=== PATIENT | male | born 1990 | race Caucasian/White ===

== ENCOUNTER 2016-12-05 21:34 | Emergency (ER) | payer SELFPAY ==
[~2016-12-05] VITALS: Ht 170.2 cm; Wt 63.5 kg
[~2016-12-05 21:34] MED LIST: ACHD5005 PO; ADV1DS; AGM875T PO; ALBU17AE3; ALBU8.5H2 IH; ALBUTERAL NEB; ALBUTEROL; AMOX-358 PO; AMOX500C2 PO; BENADRYL; CEFD300C3 PO; CEPH500C PO; CLIN-80 PO; CPR500T PO; CYCL10TA9 PO; FLT05NA16; FLUT1DIS26; FLUT1DIS28 IH; HYDR-3714 PO; HYDR-3720 PO; HYDR-3812 PO; HYDR-3816 PO; HYDR-707 PO; HYDR-757 PO; HYDR1CAP2 PO; IBUP-30 PO; IBUP800T26 PO; IPRA3AMP IH; IPRA3AMP11 INH; METH4TAB PO; MNTL10T; MPR22T TP; NAPR-243 PO; NAPR250T PO; NAPR500T PO; ONDAN4ODT PO; ORPH100T PO; OXYC-12 PO; PENI250T2 PO; PENI500T PO; PHEN200T27 PO; PRD20T PO; TRAM50TA2 PO; TRM50T PO
[2016-12-06 00:36] VITALS: BP 0/0
--- NOTE | 2016-12-06 00:39 | ED Head Injury ---
General Chief Complaint: Head/Cervical Problems Stated Complaint: HEAD INJ Nursing Triage Note: Pt reports tripping on stairs and hitting head on stair railing. No LOC. Pt also c/o dizziness and "seeing stars". History of Present Illness Time seen by provider: 23:50 Initial Comments Patient reports stepping on his son's hot will car while going down the stairs, he lost his balance fell and hit his right parietal region on the railing warmth. He denies loss of consciousness at the time of the injury. His was present at home. Occurred: this evening Location: parietal (right) Method of Injury: fell Loss of Consciousness: no loss of consciousness Associated Systoms: Denies SymptomsNo Headaches, No Loss of Appetite, No Nausea/Vomiting, No Seizure, No Syncope Allergies and Home Medications Allergies Coded Allergies: tramadol (Unverified Allergy, Unknown, 06/27/14) Uncoded Allergies: NKDA (Allergy, Mild, 02/26/09) Home Medications Albuterol 8.5 Gm Hfa.aer.ad 2 PUFF IH Q4H PRN PRN SHORTNESS OF BREATH (Reported ) 2 PUFFS Albuterol/Ipratropium 3 Ml Nebu #100 3 ML INH QID Prescribed by: LEONARDA GARCIA on 08/05/14 1141 Constitutional: no symptoms reported see HPI Eyes: No Symptoms Reported See HPIDenies Blurred Vision Ears, Nose, Mouth, Throat: no symptoms reported see HPI Respiratory: no symptoms reported see HPI Cardiovascular: no symptoms reported see HPI Gastrointestinal: no symptoms reported see HPI Genitourinary: no symptoms reported see HPI Musculoskeletal: no symptoms reported see HPI Skin: no symptoms reported see HPI Psychiatric/Neurological: No Symptoms Reported See HPI Endocrine: No Symptoms Reported See HPI Hematologic/Lymphatic: No Symptoms Reported See HPI All Other Systems Reviewed Negative Unless Noted: Yes Past Nijjkar-Hpdnom-Huhwgm Hx Patient Social History Alcohol Use: Denies Use Recreational Drug Use: No Smoking Status: Current Someday Smoker Type Used: Cigarettes Former Smoker/When Quit: Aug 05, 2014 Recent Foreign Travel: No Contact w/Someone Who Travel: No Recent Infectious Disease Expo: No Recent Hopitalizations: No Immunizations Up To Date Tetanus Booster (TDap): Less than 5yrs Seasonal Allergies Seasonal Allergies: Yes (Ragweed and pollen) Surgeries HX Surgeries: Yes (MOUTH--SPACER AND PULLED 2 TEETH, FX SCAPULA) Surgeries: Orthopedic Respiratory Hx Respiratory Disorders: Yes Respiratory Disorders: Asthma Cardiovascular Hx Cardiac Disorders: No Neurological Hx Neurological Disorders: Yes Neurological Disorders: Seizure Disorder Reproductive System Hx Reproductive Disorders: No Sexually Transmitted Disease: No Genitourinary Hx Genitourinary Disorders: Yes (Hx re-occuring kidney stones since 8th grade) Genitourinary Disorders: Kidney Stones Gastrointestinal Hx Gastrointestinal Disorders: Yes Gastrointestinal Disorders: Gastroesophageal Reflux Musculoskeletal Hx Musculoskeletal Disorders: Yes Musculoskeletal Disorders: Chronic Back Pain, Fractures Endocrine Hx Endocrine Disorders: No HEENT HX ENT Disorders: Yes (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) Cancer Hx Cancer: No Psychosocial Hx Psychiatric Problems: No Integumentary HX Skin/Integumentary Disorder: Yes Skin/Integumentary Disorders: Eczema Blood Transfusions Hx Blood Disorders: No Adverse Reaction to a Blood Tr: No Reviewed Nursing Assessment Reviewed/Agree w Nursing PMH: Yes Family Medical History Significant Family History: No Pertinent Family Hx Physical Exam Vital Signs Vital Sign - Last 12Hours 12/05/16 22:51 Temp 98.2 Pulse 87 Resp 18 B/P 141/67 Pulse Ox 98 O2 Delivery Room Air Capillary Refill : Less Than 3 Seconds General Appearance: WD/WN no apparent distress HEENT: PERRL/EOMI normal ENT inspection TMs normal pharynx normal other ( trace swelling right parietal region, no ecchymosis, or laceration) Neck: non-tender full range of motion supple normal inspection Cardiovascular: normal peripheral pulses regular rate, rhythm no murmur Respiratory: chest non-tender lungs clear no accessory muscle use Gastrointestinal: normal bowel sounds non tender soft Back: normal inspection no CVA tenderness no vertebral tenderness Extremities: normal range of motion non-tender normal inspection no pedal edema no calf tenderness normal capillary refill Psychiatric: alert oriented x 3 Crainal Nerves: normal hearing normal speech PERRL Coordination/Gait: normal finger to nose normal gait negative Romberg's sign other (recent and remote memory intact.) Motor/Sensory: no motor deficit no sensory deficit no pronator drift Skin: normal color warm/dry Lymphatic: no adenopathy Veronica Coma Score Best Eye Response: (4) Open Spontaneously Best Verbal Response: (5) Oriented Best Motor Response: (6) Obeys Commands Veronica Total: 15 Progress/Results/Core Measures Results/Orders My Orders Vital Signs/I&O Vital Sign - Last 12Hours 12/05/16 22:51 Temp 98.2 Pulse 87 Resp 18 B/P 141/67 Pulse Ox 98 O2 Delivery Room Air Blood Pressure Mean: 91 Progress Note : Time: 23:50 Progress Note Initial evaluation completed, discussed findings with patient recommended CT head. Patient agreed with this denied any needs at this time. 0035 patient and reports they need to return home, he would like to forego the CT study. Discussed risks versus benefits of the CT. He understands and wants to proceed leaving AMA. Departure Impression Impression: Primary Impression: Concussion without loss of consciousness Qualified Code: S06.0X0A - Concussion without loss of consciousness, initial encounter Disposition: AGAINST MEDICAL ADVICE Condition: Stable Departure-Patient Inst. Decision time for Depature: 00:41 Referrals: NO,LOCAL PHYSICIAN (PCP/Family) Primary Care Physician Patient Instructions: Minor Head Injury (DC) Add. Discharge Instructions: All discharge instructions reviewed with patient and/or family. Voiced understanding. Tylenol 650 mg by mouth every 6 hours as needed for pain or headache. Return to emergency department for change in symptoms, change in neurological status, dizziness, confusion, changes in vision, vomiting or any other concerns. LAURE JEAN-BAPTISTE Dec 06, 2016 00:39
== END 2016-12-06 00:40 | disposition left against medical advice (07) ==
LOC: EDUNIT# 21:34 → ER 21:36
DX: S06.0X0A Concussion without loss of consciousness, initial encounter (principal); F17.210 Nicotine dependence, cigarettes, uncomplicated; W10.9XXA Fall (on) (from) unspecified stairs and steps, initial encounter; Y92.009 Unspecified place in unspecified non-institutional (private) residence as the place of occurrence of the external cause; Y99.8 Other external cause status
CPT/HCPCS: 99282

== ENCOUNTER 2018-07-05 14:57 | Emergency (ER) | payer SELFPAY ==
[~2018-07-05] VITALS: Ht 170.2 cm; Wt 63.5 kg
[~2018-07-05 14:57] MED LIST changes: +HYDR-34 PO; -HYDR-3812 PO; -HYDR-3816 PO; +HYDR-4226 PO; -HYDR-757 PO; +NAPR-1071 PO; -NAPR500T PO
--- OUTSIDE RECORDS SUMMARY | 2018-07-05 15:02 | XMS REPORT ---
Author Author HANG SMITH Organization [facility] Address [address] [place] [address] Care Team Providers Care Retail Sales Professional Name Role Phone HANG SMITH Unavailable PROBLEMS Type Condition ICD9-CM Code UTS87-IT Code Onset Dates Condition Status SNOMED Code Problem GUANAKO (generalized anxiety disorder) F41.1 Active 44781929 Problem Social anxiety disorder F40.10 Active 62786287 Problem Anxiety F41.9 Active 41149385 Problem Moderate episode of recurrent major depressive disorder F33.1 Active 056611552 Problem Other chronic pain G89.29 Active 63246907 ALLERGIES No Information ENCOUNTERS Encounter Location Date Diagnosis [facility] [address] [address] Mar, [facility] [id number] [place] [address] February, [facility] [address] [address] February, GUANAKO (generalized anxiety disorder) F41.1 ; Social anxiety disorder F40.10 and Moderate episode of recurrent major depressive disorder F33.1 [facility] [id number] [place] [address]- [address] Jan, Anxiety F41.9 ; Other chronic pain G89.29 and Pain in right wrist M25.531 [facility] [id number] [place] [address] 04756- 2682 Jan, GUANAKO (generalized anxiety disorder) F41.1 ; Social anxiety disorder F40.10 and Moderate episode of recurrent major depressive disorder F33.1 [facility] [id number] [place] [address] -[address] Dec, Right wrist pain M25.531 and Sprain of right wrist, initial encounter S63.501A [facility] [id number] [place] [address]- 04[address] Aug, Anxiety F41.9 [facility] [id number] [place] [address]- 9029 Jul, Anxiety F41.9 [facility] [id number] [place] [address]- 7[address] February, [facility] [id number] [place] [address]36- 3009 Jun, [facility] [id number] [place] [address] 9[address]04- 1542 May, [facility] [id number] [place] [address] 91829- 1641 May, [facility] [id number] [place] [address] 95888- 9398 May, Panic attack F41.0 ; Social anxiety disorder F40.10 ; Generalized anxiety disorder F41.1 and Mood disorder F39 [facility] [id number] [place] [id number] Sep, Dental caries K02.9 [facility] [id number] [place] [id number] Sep, Encounter for dental examination Z01.20 [facility] [id number] [place] [address]60- 3603 Jan, [facility] [id number] [place] [address] 57665- 0[address] Jan, [facility] [id number] [place] [address] 94546- 9926 Oct, [facility] [id number] [place] [address] 17691- 6333 Oct, [facility] [id number] [place] [address] 68860- 3201 May, [facility] [address] [place] [address] February, [facility] [address] [place] [address] Jul, [facility] [address] [place] [address] Sep, [facility] [id number] [place] [address] 2546 Sep, [facility] [address] [place] [address] Sep, [facility] [address] [place] [address] Sep, [facility] [address], [place] [address] Aug, IMMUNIZATIONS No Known Immunizations SOCIAL HISTORY Never Assessed REASON FOR VISIT Refill request PLAN OF CARE VITAL SIGNS MEDICATIONS Unknown Medications RESULTS No Results PROCEDURES No Known procedures INSTRUCTIONS MEDICATIONS ADMINISTERED No Known Medications MEDICAL (GENERAL) HISTORY Type Description Date Medical History Asthma Medical History multiple concussions Surgical History Right Wrist 2011 Hospitalization History asthma x 3 in childhood
--- OUTSIDE RECORDS SUMMARY | 2018-07-05 15:02 | XMS REPORT ---
Author Author HANG SMITH Organization [facility] Address [address] [place] [address] Care Team Providers Care Regrind Mill Operator Name Role Phone HANG SMITH Unavailable PROBLEMS Type Condition ICD9-CM Code EOH88-NO Code Onset Dates Condition Status SNOMED Code Problem GUANAKO (generalized anxiety disorder) F41.1 Active 27191484 Problem Social anxiety disorder F40.10 Active 17878862 Problem Anxiety F41.9 Active 72796951 Problem Moderate episode of recurrent major depressive disorder F33.1 Active 026889527 Problem Other chronic pain G89.29 Active 01749320 ALLERGIES No Information ENCOUNTERS Encounter Location Date Diagnosis [facility] [address] [address] Mar, [facility] [id number] [place] [address] February, [facility] [address] [address] February, GUANAKO (generalized anxiety disorder) F41.1 ; Social anxiety disorder F40.10 and Moderate episode of recurrent major depressive disorder F33.1 [facility] [id number] [place] [address]- [address] Jan, Anxiety F41.9 ; Other chronic pain G89.29 and Pain in right wrist M25.531 [facility] [id number] [place] [address]55- 9[address] Jan, GUANAKO (generalized anxiety disorder) F41.1 ; Social anxiety disorder F40.10 and Moderate episode of recurrent major depressive disorder F33.1 [facility] [id number] [place] [address] Dec, Right wrist pain M25.531 and Sprain of right wrist, initial encounter S63.501A [facility] [id number] [place] [address] 8[address]85- 7[address] Aug, Anxiety F41.9 [facility] [id number] [place] [address] 09568- 7930 Jul, Anxiety F41.9 [facility] [id number] [place] [address] 36[address]- [address] February, [facility] [id number] [place] [address] 23855- 2090 Jun, [facility] [id number] [place] [address] 76207- 1203 May, [facility] [id number] [place] [address] 43037- 1289 May, [facility] [id number] [place] [address] 78177- 6629 May, Panic attack F41.0 ; Social anxiety disorder F40.10 ; Generalized anxiety disorder F41.1 and Mood disorder F39 [facility] [id number] [place] [id number] Sep, Dental caries K02.9 [facility] [id number] [place] [id number] Sep, Encounter for dental examination Z01.20 [facility] [id number] [place] [address] 66324- 7157 Jan, [facility] [id number] [place] [address] 71181- 7985 Jan, [facility] [id number] [place] [address] 50123- 1623 Oct, [facility] [id number] [place] [address] 289[address]- 1860 Oct, [facility] [id number] [place] [address] 58932- 9712 May, [facility] [address] [place] [address] February, [facility] [address], [place] [address] Jul, [facility] [address] [place] [address] Sep, [facility] [address], [place] [address] Sep, [facility] [address], [place] [address] Sep, [facility] [address], [place] [address] Sep, [facility] [address], [place] [address] Aug, IMMUNIZATIONS No Known Immunizations SOCIAL HISTORY Never Assessed REASON FOR VISIT Refill request PLAN OF CARE VITAL SIGNS MEDICATIONS Medication Instructions Dosage Frequency Start Date End Date Duration Status Clonazepam 0.5 MG Orally 2 times a day 0.5 tablet 12h Jan, 28 days Active RESULTS No Results PROCEDURES No Known procedures INSTRUCTIONS MEDICATIONS ADMINISTERED No Known Medications MEDICAL (GENERAL) HISTORY Type Description Date Medical History Asthma Medical History multiple concussions Surgical History Right Wrist 2011 Hospitalization History asthma x 3 in childhood
--- OUTSIDE RECORDS SUMMARY | 2018-07-05 15:03 | XMS REPORT ---
Author Author RAMON SY Organization [facility] Address [address] [place] [address] Care Team Providers Care Brim Ironer Hand Name Role Phone MILAGROSSY REYNAGA Unavailable PROBLEMS Type Condition ICD9-CM Code YLS53-FT Code Onset Dates Condition Status SNOMED Code Problem GUANAKO (generalized anxiety disorder) F41.1 Active 02783447 Problem Social anxiety disorder F40.10 Active 29635901 Problem Anxiety F41.9 Active 12576231 Problem Moderate episode of recurrent major depressive disorder F33.1 Active 463703248 Problem Other chronic pain G89.29 Active 82992264 ALLERGIES No Information ENCOUNTERS Encounter Location Date Diagnosis [facility] [address] [address] Mar, [facility] [id number] [place] [address] February, [facility] [address] [address] February, GUANAKO (generalized anxiety disorder) F41.1 ; Social anxiety disorder F40.10 and Moderate episode of recurrent major depressive disorder F33.1 [facility] [id number] [place] [address]- 68[address] Jan, Anxiety F41.9 ; Other chronic pain G89.29 and Pain in right wrist M25.531 [facility] [address] [address] Jan, GUANAKO (generalized anxiety disorder) F41.1 ; Social anxiety disorder F40.10 and Moderate episode of recurrent major depressive disorder F33.1 [facility] [id number] [place] [address] 64967 -[address]58 Dec, Right wrist pain M25.531 and Sprain of right wrist, initial encounter S63.501A [facility] [id number] [place] [address] 69866- 8427 Aug, Anxiety F41.9 [facility] [id number] [place] [address] 82293- 1222 Jul, Anxiety F41.9 [facility] [id number] [place] [address] 97888- 9698 February, [facility] [id number] [place] [address] 07566- 9513 Jun, [facility] [id number] [place] [address] 68685- 7885 May, [facility] [id number] [place] [address] 03652- 8109 May, [facility] [id number] [place] [address] 94455- 8314 May, Panic attack F41.0 ; Social anxiety disorder F40.10 ; Generalized anxiety disorder F41.1 and Mood disorder F39 [facility] [address] [id number] Sep, Dental caries K02.9 [facility] [id number] [place] [address] [id number] Sep, Encounter for dental examination Z01.20 [facility] [id number] [place] [address] 83021- 5615 Jan, [facility] [id number] [place] [address] 32283- 5003 Jan, [facility] [id number] [place] [address] 40380- 8971 Oct, [facility] [id number] [place] [address] 30393- 7243 Oct, [facility] [id number] [place] [address] 93783- 2546 May, [facility] [id number] [address] 2546 February, [facility] [id number] [address] 2546 Jul, [facility] [id number] [address]- [address] Sep, [facility] [id number] [address]- 25[address] Sep, [facility] [id number] [address] 2546 Sep, [facility] [id number] [address] 2546 Sep, [facility] [id number] [address] Aug, IMMUNIZATIONS No Known Immunizations SOCIAL HISTORY Never Assessed REASON FOR VISIT Psychiatric f/u-Tonja WICK PLAN OF CARE Activity Details Follow Up 2 Months Reason: VITAL SIGNS Height 67 in 2018-02-26 Weight 129.9 lbs 2018-02-26 Heart Rate 80 bpm 2018-02-26 Respiratory Rate 18 2018-02-26 BMI 20.34 kg/m2 2018-02-26 Blood pressure systolic 114 mmHg 2018-02-26 Blood pressure diastolic 68 mmHg 2018-02-26 MEDICATIONS Medication Instructions Dosage Frequency Start Date End Date Duration Status Clonazepam 0.5 MG Orally 2 times a day 0.5 tablet 12h Jan, Active Zoloft 50 MG Orally Once a day 1 tablet 24h Jan, 30 days Active Albuterol Sulfate 90 mcg/actuation inhale 1 puff by Inhalation route as needed every 4-6 hours PRN SOB, wheezing Oct, Active RESULTS No Results PROCEDURES No Known procedures INSTRUCTIONS MEDICATIONS ADMINISTERED No Known Medications MEDICAL (GENERAL) HISTORY Type Description Date Medical History Asthma Medical History multiple concussions Surgical History Right Wrist 2011 Hospitalization History asthma x 3 in childhood
--- OUTSIDE RECORDS SUMMARY | 2018-07-05 15:03 | XMS REPORT ---
Author Author BRENDAN BATES Organization [employer] Address Unknown Phone Unavailable Care Team Providers Care Mine Engineering Supervisor Name Role Phone BRENDAN BATES CP Unavailable Allergies, Adverse Reactions, Alerts Substance Reaction Event Type Tramadol HCl Info Not Available Drug Allergy Problems Problem Type Condition Code Onset Dates Condition Status Assessment Encounter for dental examination Z01.20 Active Medications Medication Code System Code Instructions Start Date End Date Status Dosage Albuterol Sulfate [facility] [address]-04 90 mcg/actuation Nov 01, 2014 inhale 1 puff by Inhalation route as needed every 4-6 hours PRN SOB, wheezing [place] [facility] [address]-89 5-325 MG Orally every 6 hrs Oct 03, 2015 Oct 07, 2015 1 tablet as needed Amoxicillin [facility] [address]-87 500 MG Orally Every 6 hours Oct 03, 2015 Oct 10, 2015 1 capsule Procedures Procedure Coding System Code Date INTRAORL-PERIAPICAL 1 FILM 27267 CPT-4 D0220 Oct 03, 2015 INTRAORL-PERIAPICAL EA ADD FILM CPT-4 D0230 Oct 03, 2015 LTD ORAL EVALUATION - PROBLEM FOCUS CPT-4 D0140 Oct 03, 2015 Vital Signs Date/Time: Oct 03, 2015 Blood Pressure Diastolic 69 mmHg Blood Pressure Systolic 114 mmHg Results No Known Results Summary Purpose [employer] Submission
--- OUTSIDE RECORDS SUMMARY | 2018-07-05 15:03 | XMS REPORT ---
Author Author HANG SMITH [facility] Address [address] [place] [address] Care Team Providers Care Dancing Instructor Name Role Phone HANG SMITH Unavailable PROBLEMS Type Condition ICD9-CM Code CUF20-EX Code Onset Dates Condition Status SNOMED Code Problem Anxiety F41.9 Active 88199835 ALLERGIES No Information SOCIAL HISTORY Never Assessed PLAN OF CARE VITAL SIGNS MEDICATIONS Unknown Medications RESULTS No Results PROCEDURES No Known procedures IMMUNIZATIONS No Known Immunizations MEDICAL (GENERAL) HISTORY Type Description Date Medical History Asthma Surgical History Right Wrist 2011
--- OUTSIDE RECORDS SUMMARY | 2018-07-05 15:03 | XMS REPORT ---
Author Author BRENDAN BATES Organization [employer] Address Unknown Phone Unavailable Care Team Providers Care Customer Service Correspondence Clerk Name Role Phone BRENDAN BATES CP Unavailable Allergies, Adverse Reactions, Alerts Substance Reaction Event Type Tramadol HCl Info Not Available Drug Allergy Problems Problem Type Condition Code Onset Dates Condition Status Assessment Dental caries K02.9 Active Medications Medication Code System Code Instructions Start Date End Date Status Dosage Albuterol Sulfate [facility] [address]-03 90 mcg/actuation Nov 01, 2014 inhale 1 puff by Inhalation route as needed every 4-6 hours PRN SOB, wheezing [place] [facility] [address]-24 5-325 MG Orally every 6 hrs 1 tablet as needed Procedures Procedure Coding System Code Date EXTRAC ERUPTED TOOTH/EXPOSED ROOT CPT-4 D7140 Oct 03, 2015 EXTRAC ERUPTED TOOTH/EXPOSED ROOT CPT-4 D7140 Oct 03, 2015 Vital Signs Date/Time: Oct 16, 2015 Blood Pressure Diastolic 83 mmHg Blood Pressure Systolic 139 mmHg Results No Known Results Summary Purpose [employer] Submission
--- OUTSIDE RECORDS SUMMARY | 2018-07-05 15:03 | XMS REPORT ---
Author Author HANG SMITH Organization [facility] Address [address] [place] [address] Care Team Providers Care Fabric Normalizer Name Role Phone HANG SMITH Unavailable PROBLEMS Type Condition ICD9-CM Code [id number] Code Onset Dates Condition Status SNOMED Code Problem GUANAKO (generalized anxiety disorder) F41.1 Active 12300347 Problem Social anxiety disorder F40.10 Active 30987995 Problem Anxiety F41.9 Active 89805651 Problem Moderate episode of recurrent major depressive disorder F33.1 Active 178361229 Problem Other chronic pain G89.29 Active 95581128 ALLERGIES Substance Reaction Event Type Date Status Tramadol HCl Unknown Drug Allergy Jul, Active ENCOUNTERS Encounter Location Date Diagnosis [facility] [id number] [place] [address] 53822- 1628 February, [facility] [id number] [place] [address] 27984- 7522 February, [facility] [id number] [place] [address] 09300- 3181 February, GUANAKO (generalized anxiety disorder) F41.1 ; Social anxiety disorder F40.10 and Moderate episode of recurrent major depressive disorder F33.1 [facility] [id number] [place] [address] 40519- 4029 Jan, Anxiety F41.9 ; Other chronic pain G89.29 and Pain in right wrist M25.531 [facility] [id number] [place] [address] 88650- 1591 Jan, GUANAKO (generalized anxiety disorder) F41.1 ; Social anxiety disorder F40.10 and Moderate episode of recurrent major depressive disorder F33.1 [facility] [id number] [place] [address] 47729 -5153 Dec, Right wrist pain M25.531 and Sprain of right wrist, initial encounter S63.501A [facility] [id number] [place] [address] 79248- 6639 Aug, Anxiety F41.9 [facility] [id number] [place] [address] 71662- 0846 Jul, Anxiety F41.9 [facility] [id number] [place] [address] 61515- 5472 February, [facility] [id number] [place] [address] 21826- 8088 Jun, [facility] [id number] [place] [address] 42981- 1127 May, [facility] [id number] [place] [address] 60900- 7723 May, [facility] [id number] [place] [address] 89174- 4914 May, Panic attack F41.0 ; Social anxiety disorder F40.10 ; Generalized anxiety disorder F41.1 and Mood disorder F39 [facility] [id number] [place] [address] [id number] Sep, Dental caries K02.9 [facility] [id number] [place] [address] [id number] Sep, Encounter for dental examination Z01.20 [facility] [id number] [place] [address] 95831- 6731 Jan, [facility] [id number] [place] [address] 19646- 6941 Jan, [facility] [id number] [place] [address] 63394- 7543 Oct, [facility] [id number] [place] [address] 84986- 7376 Oct, [facility] [address] [place] [address] 2546 May, [facility] [address] [address] 0076 February, [facility] [address] [address] 1866 Jul, [facility] [address], [place] [address]- 5624 Sep, [facility] [address], [place] [address]- 5188 Sep, [facility] [address], [place] [address]- 4450 Sep, [facility] [address], [place] [address] 2546 Sep, [facility] [address], [place] [address]- 6869 Aug, IMMUNIZATIONS No Known Immunizations SOCIAL HISTORY Never Assessed REASON FOR VISIT Depression f/u, PT depression seems to be under control but his anger seems to be getting the best of him-Tonja WICK PLAN OF CARE Activity Details Follow Up 4 Weeks Reason:mood disorder VITAL SIGNS Height 67 in 2017-08-21 Weight 134.8 lbs 2017-08-21 Temperature 98.3 degrees Fahrenheit 2017-08-21 Heart Rate 84 bpm 2017-08-21 Respiratory Rate 20 2017-08-21 BMI 21.11 kg/m2 2017-08-21 Blood pressure systolic 102 mmHg 2017-08-21 Blood pressure diastolic 78 mmHg 2017-08-21 MEDICATIONS Medication Instructions Dosage Frequency Start Date End Date Duration Status Albuterol Sulfate 90 mcg/actuation inhale 1 puff by Inhalation route as needed every 4-6 hours PRN SOB, wheezing Oct, Active Duloxetine HCl 60 mg Orally Once a day 1 capsule 24h Jul, 30 day(s) Active Xanax 0.5 MG Orally Three times a day 1 tablet 8h May, Active RESULTS No Results PROCEDURES No Known procedures INSTRUCTIONS MEDICATIONS ADMINISTERED No Known Medications MEDICAL (GENERAL) HISTORY Type Description Date Medical History Asthma Medical History multiple concussions Surgical History Right Wrist 2011 Hospitalization History asthma x 3 in childhood
--- OUTSIDE RECORDS SUMMARY | 2018-07-05 15:03 | XMS REPORT ---
Author Author HANG SMITH Organization [facility] Address [address] [place] [address] Care Team Providers Care Floating Operator Name Role Phone HANG SMITH Unavailable PROBLEMS Type Condition ICD9-CM Code [id number] Code Onset Dates Condition Status SNOMED Code Problem GUANAKO (generalized anxiety disorder) F41.1 Active 89761996 Problem Social anxiety disorder F40.10 Active 06728063 Problem Anxiety F41.9 Active 27628239 Problem Moderate episode of recurrent major depressive disorder F33.1 Active 114043795 Problem Other chronic pain G89.29 Active 64029834 ALLERGIES Substance Reaction Event Type Date Status Tramadol HCl seizure Drug Allergy Jan, Active ENCOUNTERS Encounter Location Date Diagnosis [facility] [id number] [place] [address] 92629- 4861 Mar, [facility] [id number] [place] [address] 27279- 3335 February, [facility] [id number] [place] [address] 52615- 9678 February, GUANAKO (generalized anxiety disorder) F41.1 ; Social anxiety disorder F40.10 and Moderate episode of recurrent major depressive disorder F33.1 [facility] [id number] [place] [address] 93825- 3096 Jan, Anxiety F41.9 ; Other chronic pain G89.29 and Pain in right wrist M25.531 [facility] [address] 16215- 7669 Jan, GUANAKO (generalized anxiety disorder) F41.1 ; Social anxiety disorder F40.10 and Moderate episode of recurrent major depressive disorder F33.1 [facility] [id number] [place] [address] 65866 -0195 Dec, Right wrist pain M25.531 and Sprain of right wrist, initial encounter S63.501A [facility] [id number] [place] [address] 01678- 9195 Aug, Anxiety F41.9 [facility] [id number] [place] [address] 42161- 4524 Jul, Anxiety F41.9 [facility] [id number] [place] [address] 35577- 2345 February, [facility] [id number] [place] [address] 28076- 4865 Jun, [facility] [id number] [place] [address] 25912- 4118 May, [facility] [id number] [place] [address] 86512- 8164 May, [facility] [id number] [place] [address] 44980- 3225 May, Panic attack F41.0 ; Social anxiety disorder F40.10 ; Generalized anxiety disorder F41.1 and Mood disorder F39 [facility] [id number] [place] [address] [phone] Sep, Dental caries K02.9 [facility] [id number] [place] [address] [phone] Sep, Encounter for dental examination Z01.20 [facility] [id number] [place] [address] 06419- 8953 Jan, [facility] [id number] [place] [address] 70526- 0918 Jan, [facility] [id number] [place] [address] 42716- 7148 Oct, [facility] [id number] [place] [address] 72988- 2734 Oct, [facility] [address] [place] [address] 2546 May, [facility] [address] [address] 2546 February, [facility] [address], [place] [address] 2546 Jul, [facility] [address], [place] [address]- 3778 Sep, [facility] [id number] [address]- 2546 Sep, [facility] [address], [place] [address] 2546 Sep, [facility] [address], [place] [address]- 2546 Sep, [facility] [id number] [address] 2546 Aug, IMMUNIZATIONS No Known Immunizations SOCIAL HISTORY Never Assessed REASON FOR VISIT Depression, right wrist surgery f/u, concerns over xanax medication [facility] PLAN OF CARE VITAL SIGNS Height 67 in 2018-02-11 Weight 131 lbs 2018-02-11 Temperature 98.1 degrees Fahrenheit 2018-02-11 Heart Rate 92 bpm 2018-02-11 Respiratory Rate 20 2018-02-11 BMI 20.52 kg/m2 2018-02-11 Blood pressure systolic 120 mmHg 2018-02-11 Blood pressure diastolic 78 mmHg 2018-02-11 MEDICATIONS Medication Instructions Dosage Frequency Start Date End Date Duration Status Zoloft 50 MG Orally Once a day 0.5 tablet every day for one week then take full tablet 24h Jan, 30 day(s) Active Clonazepam 0.5 MG Orally 2 times a day 0.5 tablet 12h Jan, Active Albuterol Sulfate 90 mcg/actuation inhale 1 [...]
--- OUTSIDE RECORDS SUMMARY | 2018-07-05 15:03 | XMS REPORT ---
Author HANG Hood Organization [employer] Address Unknown Phone Unavailable Care Team Providers Care Primer Supervisor Name Role Phone HANG SMITH CP Unavailable Allergies No Known Allergies Problems No Known Problems Medications Medication Code System Code Instructions Start Date End Date Status Dosage Xanax [facility] [address]-76 0.5 MG Orally Three times a day Jun 19, 2016 1 tablet Results No Known Results Summary Purpose [employer]ClinicalWorks Submission
--- OUTSIDE RECORDS SUMMARY | 2018-07-05 15:03 | XMS REPORT ---
Author Author ELEANOR WORRELL [facility] Address [address] [place] [address] Care Team Providers Care Data Acquisition Technician Name Role Phone ELEANOR WORRELL Unavailable PROBLEMS Type Condition ICD9-CM Code [id number] Code Onset Dates Condition Status SNOMED Code Problem GUANAKO (generalized anxiety disorder) F41.1 Active 94610087 Problem Social anxiety disorder F40.10 Active 82353102 Problem Anxiety F41.9 Active 98619504 Problem Moderate episode of recurrent major depressive disorder F33.1 Active 666221043 Problem Other chronic pain G89.29 Active 75141687 ALLERGIES Substance Reaction Event Type Date Status Tramadol HCl Unknown Drug Allergy Dec, Active ENCOUNTERS Encounter Location Date Diagnosis [facility] [id number] [place] [address] 86625- 6380 Mar, [facility] [id number] [place] [address] 46129- 9434 February, [facility] [address] [address]39- 8720 February, GUANAKO (generalized anxiety disorder) F41.1 ; Social anxiety disorder F40.10 and Moderate episode of recurrent major depressive disorder F33.1 [facility] [id number] [place] [address] 24584- 3208 Jan, Anxiety F41.9 ; Other chronic pain G89.29 and Pain in right wrist M25.531 [facility] [address] 74218- 1517 Jan, GUANAKO (generalized anxiety disorder) F41.1 ; Social anxiety disorder F40.10 and Moderate episode of recurrent major depressive disorder F33.1 [facility] [id number] [place] [address] 58889 -1177 Dec, Right wrist pain M25.531 and Sprain of right wrist, initial encounter S63.501A [facility] [id number] [place] [address] 15932- 3070 Aug, Anxiety F41.9 [facility] [id number] [place] [address] 88961- 9273 Jul, Anxiety F41.9 [facility] [id number] [place] [address] 65207- 1920 February, [facility] [id number] [place] [address] 80717- 0177 Jun, [facility] [id number] [place] [address] 65239- 0808 May, [facility] [id number] [place] [address] 19915- 9855 May, [facility] [id number] [place] [address] 36734- 8532 May, Panic attack F41.0 ; Social anxiety disorder F40.10 ; Generalized anxiety disorder F41.1 and Mood disorder F39 [facility] [id number] [place] [address] [phone] Sep, Dental caries K02.9 [facility] [id number] [place] [address] [phone] Sep, Encounter for dental examination Z01.20 [facility] [id number] [place] [address] 44098- 7455 Jan, [facility] [id number] [place] [address] 98458- 7665 Jan, [facility] [id number] [place] [address] 60458- 0103 Oct, [facility] [id number] [place] [address] 00918- 3325 Oct, [facility] [id number], [place] [address] 2546 May, [facility] [address], [place] [address]- 0836 February, [facility] [address], [place] [address]- 2546 Jul, [facility] [address], [place] [address]- 6536 Sep, [facility] [address], [place] [address]- 1886 Sep, [facility] [address], [place] [address]- 7016 Sep, [facility] [address], [place] [address] 2546 Sep, [facility] [address], [place] [address]- 2546 Aug, IMMUNIZATIONS No Known Immunizations SOCIAL HISTORY Never Assessed REASON FOR VISIT wrist pain Pt fell a few days ago on R wrist, now having pain in that wrist, does have a history of surgery on that wrist in 2011 with a screw placed SHAMIKA Mims PLAN OF CARE Activity Details Follow Up prn Reason: VITAL SIGNS Height 67 in 2018-01-08 Weight 135.6 lbs 2018-01-08 Temperature 99.2 degrees Fahrenheit 2018-01-08 Heart Rate 100 bpm 2018-01-08 Respiratory Rate 20 2018-01-08 BMI 21.24 kg/m2 2018-01-08 Blood pressure systolic 162 mmHg 2018-01-08 Blood pressure diastolic 98 mmHg 2018-01-08 MEDICATIONS Medication Instructions Dosage Frequency Start Date End Date Duration Status Naproxen 500 MG Orally every 12 hrs 1 tablet with food or milk as needed 12h 15 Dec, 2017 Dec, 7 days Active Xanax 0.5 MG Orally Three times a day 1 tablet 8h 24 May, 2016 Active Albuterol Sulfate 90 mcg/actuation inhale 1 puff by Inhalation route as needed every 4-6 hours PRN SOB, wheezing Oct, Active Duloxetine HCl 60 mg Orally Once a day 1 capsule 24h 26 Oct, 2017 30 day(s) Active RESULTS Name Result Date Reference Range Xray : Wrist, Right 3 views (IN HOUSE) 2018-01-08 PROCEDURES Procedure Date Ordered Result Body Site X-RAY EXAM OF WRIST January 08, 2018 INSTRUCTIONS MEDICATIONS ADMINISTERED No Known Medications MEDICAL (GENERAL) HISTORY Type Description Date Medical History Asthma Medical History multiple concussions Surgical History Right Wrist 2011 Hospitalization History asthma x 3 in childhood
--- OUTSIDE RECORDS SUMMARY | 2018-07-05 15:03 | XMS REPORT ---
Author HANG Hood Organization [employer] Address Unknown Phone Unavailable Care Team Providers Care Insulator Helper Name Role Phone HANG SMITH CP Unavailable Allergies No Known Allergies Problems No Known Problems Medications Medication Code System Code Instructions Start Date End Date Status Dosage Celexa [facility] [address]-49 20 mg Orally Once a day Jun 19, 2016 1 tablet Results No Known Results Summary Purpose [employer]ClinicalWorks Submission
--- OUTSIDE RECORDS SUMMARY | 2018-07-05 15:03 | XMS REPORT ---
Author Author RAMONSY Organization [facility] Address [address] [place] [address] Care Team Providers Care Cook Pickled Meat Name Role Phone MILAGROSSY REYNAGA Unavailable PROBLEMS Type Condition ICD9-CM Code USJ34-DG Code Onset Dates Condition Status SNOMED Code Problem GUANAKO (generalized anxiety disorder) F41.1 Active 05845939 Problem Social anxiety disorder F40.10 Active 42504098 Problem Anxiety F41.9 Active 27497127 Problem Moderate episode of recurrent major depressive disorder F33.1 Active 028302327 Problem Other chronic pain G89.29 Active 34007616 ALLERGIES Substance Reaction Event Type Date Status Tramadol HCl seizure Drug Allergy Jan, Active ENCOUNTERS Encounter Location Date Diagnosis [facility] [id number] [place] [address] 53642- 1650 Mar, [facility] [id number] [place] [address] 91752- 9344 February, [facility] [address] 16[address]- 6997 February, GUANAKO (generalized anxiety disorder) F41.1 ; Social anxiety disorder F40.10 and Moderate episode of recurrent major depressive disorder F33.1 [facility] [id number] [place] [address] 24869- 8771 Jan, Anxiety F41.9 ; Other chronic pain G89.29 and Pain in right wrist M25.531 [facility] [address] 69955- 6227 Jan, GUANAKO (generalized anxiety disorder) F41.1 ; Social anxiety disorder F40.10 and Moderate episode of recurrent major depressive disorder F33.1 [facility] [id number] [place] [address] 31937 -3356 Dec, Right wrist pain M25.531 and Sprain of right wrist, initial encounter S63.501A [facility] [id number] [place] [address] 73572- 4745 Aug, Anxiety F41.9 [facility] [id number] [place] [address] 43118- 5388 Jul, Anxiety F41.9 [facility] [id number] [place] [address] 68239- 2132 February, [facility] [id number] [place] [address] 00082- 5223 Jun, [facility] [id number] [place] [address] 25828- 6481 May, [facility] [id number] [place] [address] 73757- 0315 May, [facility] [id number] [place] [address] 79293- 2065 May, Panic attack F41.0 ; Social anxiety disorder F40.10 ; Generalized anxiety disorder F41.1 and Mood disorder F39 [facility] [id number] [place] [address] [phone] Sep, Dental caries K02.9 [facility] [id number] [place] [address] [phone] Sep, Encounter for dental examination Z01.20 [facility] [id number] [place] [address] 08173- 1835 Jan, [facility] [id number] [place] [address] 47029- 3824 Jan, [facility] [id number] [place] [address] 58783- 8071 Oct, [facility] [id number] [place] [address] 81375- 1664 Oct, [facility] [id number] [address] 2546 May, [facility] [id number] [address]- 5016 February, [facility] [address], [place] [address] 2546 Jul, [facility] [address], [place] [address]- 6826 Sep, [facility] [address], [place] [address]- 8586 Sep, [facility] [address], [place] [address]- 9306 Sep, [facility] [address], [place] [address] 2546 Sep, [facility] [address], [place] [address] 2546 Aug, IMMUNIZATIONS No Known Immunizations SOCIAL HISTORY Never Assessed REASON FOR VISIT intake PLAN OF CARE Activity Details Follow Up 6 Weeks, prn Reason: VITAL SIGNS Height 67 in 2018-01-29 Weight 130 lbs 2018-01-29 Temperature 98.6 degrees Fahrenheit 2018-01-29 Heart Rate 90 bpm 2018-01-29 Respiratory Rate 20 2018-01-29 BMI 20.36 kg/m2 2018-01-29 Blood pressure systolic 126 mmHg 2018-01-29 Blood pressure diastolic 76 mmHg 2018-01-29 MEDICATIONS Medication Instructions Dosage Frequency Start Date End Date Duration Status Duloxetine HCl 60 mg Orally Once a day 1 capsule 24h Jul, 30 day(s) Not-Taking Zoloft 50 MG Orally Once a day 0.5 tablet every day for one week then take full tablet 24h Jan, 30 day(s) Active Xanax 0.5 MG Orally Three times a day as needed 1 tablet May, 30 days Active Albuterol Sulfate 90 mcg/actuation [...]
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
--- NOTE | 2018-07-05 15:41 | ED Trauma-Multisystem ---
General Chief Complaint: Trauma-Non Activation Stated Complaint: FALL/HEAD LAC Nursing Triage Note: Right head lacerations and abrasions with swelling present. Patient also complains of posterior neck pain and right hand pain. Source of Information: Patient Exam Limitations: No Limitations History of Present Illness Date Seen by Provider: Jul 05, 2018 Time Seen by Provider: 15:36 Initial Comments Patient is a 28-year-old male who presents to the emergency room with complaints of laceration to his posterior scalp, abrasion to his right side of his forehead, head, neck, jaw pain after rolling down an embankment. He reports that he is building a shed and has been leveling off a hill and the portion of the hill gave way and caused him roll down the embankment. He reports he did not fall but the rolling caused him to keep his head several times. He states that he rolled 3-4 times. He is unsure if he lost consciousness was dizzy when he got to his feet. He arrived to the emergency room POV. Location Injury Occurred: [place] Occurred: Just Prior to Arrival Pain/Injury Location: Head, Neck, Other (jaw) Loss of Consciousness: Unsure Associated Symptoms (Fall): Headache, Neck Pain Allergies and Home Medications Allergies Coded Allergies: tramadol (Unverified Allergy, Unknown, 06/27/14) Uncoded Allergies: NKDA (Allergy, Mild, 02/26/09) Home Medications Albuterol 8.5 Gm Hfa.aer.ad, 2 PUFF IH Q4H PRN for SHORTNESS OF BREATH, ( Reported) 2 PUFFS Albuterol/Ipratropium 3 Ml Nebu, 3 ML INH QID Prescribed by: LEONARDA GARICA on 08/05/14 1141 Patient Home Medication List Home Medication List Reviewed: Yes Review of Systems Review of Systems Constitutional: see HPI; No chills, No fever Musculoskeletal: see HPI, neck pain, other (jaw pain ) Skin: see HPI, other (laceration to the occipital area of his head. 1 cm in length. Patient to the right side of his head.) All Other Systems Reviewed Negative Unless Noted: Yes Past Tommpsg-Xvplsd-Qrfnzv Hx Past Med/Social Hx: Reviewed Nursing Past Med/Soc Hx Patient Social History Type Used: Cigarettes Recent Foreign Travel: No Contact w/Someone Who Travel: No Recent Infectious Disease Expo: No Recent Hopitalizations: No Physical Abuse: No Sexual Abuse: No Fear: No Immunizations Up To Date Tetanus Booster (TDap): Less than 5yrs Seasonal Allergies Seasonal Allergies: Yes (Ragweed and pollen) Past Medical History Orthopedic Asthma Seizure Disorder Reproductive Disorders: No Sexually Transmitted Disease: No Kidney Stones Gastroesophageal Reflux Chronic Back Pain, Fractures Eczema Adverse Reaction/Blood Tranf: No Family Medical History Reviewed Nursing Family Hx No Pertinent Family Hx Physical Exam Vital Signs Vital Signs - First Documented 07/05/18 07/05/18 15:10 16:56 Temp 98.6 Pulse 126 Resp 16 B/P (MAP) 132/80 (97) Pulse Ox 99 O2 Delivery Room Air Height, Weight, BMI Height: 5'7.00" Weight: 140lbs. oz. 63.695895hj; 25.74 BMI Method:Stated General Appearance: No Apparent Distress, WD/WN Head: Tenderness (to the right occipital area.) Eyes: Bilateral Eye Normal Inspection, Bilateral Eye PERRL, Bilateral Eye EOMI Ears, Nose, Throat: Hearing Grossly Normal, No Evidence of ENT Injury, No Dental Injury, Other (bilateral jaw pain and tenderness) Neck: Normal Inspection, Non Tender, Other (tenderness of cervical spine. C- collar was placed on arrival to the emergency room.) Cardiovascular: Regular Rate, Rhythm, No Edema, No Gallop, No JVD, No Murmur, Normal Peripheral Pulses Respiratory: Chest Non Tender, Lungs Clear, Normal Breath Sounds, No Accessory Muscle Use, No Respiratory Distress Extremity: Normal Capillary Refill, Normal Inspection, Normal Range of Motion, Non Tender, No Calf Tenderness Neurologic/Psychiatric: Alert, Oriented x3, Normal Mood/Affect Skin: Normal Color, Warm/Dry, Other (once in a laceration to his scalp in the occipital area. Bleeding is controlled. He does have abrasions to the right side of his forehead.) Heidrick Coma Score Best Eye Response (Heidrick): (4) Open Spontaneously Best Verbal Response (Heidrick): (5) Oriented Best Motor Response (Veronica): (6) Obeys Commands Veronica Total: 15 Procedures/Interventions Wound Location: Scalp Other Wound Location Right occipital Wound Length (cm): 1 Wound's Depth, Shape: superficial, linear Wound Explored: clean Irrigated w/ Saline (ccs): 50 Staple Repair: Stapler 35W Number of Sutures: 2 Progress The wound was cleaned and irrigated with normal saline and Betasept. The patient did not want any anesthetic. The laceration was closed with 2 tim. Progress/Results/Core Measures Results/Orders My Orders Orders - ISIS RODRIGUEZ Ct Head/Face/Cervical Wo (07/05/18 15:32) Acetaminophen Tablet (Tylenol Tablet) (07/05/18 17:00) Vital Signs/I&O 07/05/18 07/05/18 15:10 16:56 Temp 98.6 98.6 Pulse 126 126 Resp 16 16 B/P (MAP) 132/80 (97) 132/80 (97) Pulse Ox 99 O2 Delivery Room Air Room Air Blood Pressure Mean: 97 Progress Progress Note : Time: 16:30 Progress Note I have seen and evaluated the patient. C-collar was removed this time. He was informed normal imaging studies. Suture repaired with 2 tim. He did not any anesthetic prior to laceration repair. Tylenol was given for pain. He agrees with plans for discharge, close follow-up with a primary care provider. Return precautions were given. Diagnostic Imaging Diagonstic Imaging: CT Plain Films/CT/US/NM/MRI: facial bones, c-spine, head Comments NAME: BRI JONES [facility] REC#: [id number] PHYSICIAN: ISIS RODRIGUEZ CC: ISIS RODRIGUEZ; IASBEL CASTELLON MD Page 2 of 2 RADIOLOGY REPORT [place] CC: PAULO RODRIGUEZ ERIC D MD Page 1 of 2 RADIOLOGY REPORT NAME: BRI JONES [facility] REC#: [id number] PT STATUS: REG ER : 1990 PHYSICIAN: ISIS RODRIGUEZ ADMIT DATE: 07/05/18/ER Signed Date of Exam: 07/05/18 CT HEAD/FACE/CERVICAL WO PROCEDURE: CT head, face, and cervical spine without contrast. TECHNIQUE: Multiple contiguous axial images were obtained through the head, neck, and facial bones without the use of intravenous contrast. Sagittal and coronal reformations through the cervical spine and facial bones were also performed. INDICATION: Rolled down hill and bumped head. CT head: FINDINGS: Ventricles and cortical gyral pattern are normal. There is no intracranial hemorrhage. No mass effect. No extra-axial fluid collection. Basal cisterns are clear. Mastoid air cells are well aerated and clear. There is a large cyst in right maxillary sinus. No evidence of calvarial fractures. IMPRESSION: No acute intracranial abnormalities. CT facial bones: FINDINGS: No fractures are demonstrated throughout the facial bones. Zygomatic arches are intact. Nasal septum is midline. There is a large cyst in the right maxillary antrum measuring 2.5 cm. There is diffuse dental caries with multiple apical root abscesses noted both in the maxillary and mandibular molars. There are defects in the crown of the teeth as well. IMPRESSION: Severe dental caries both in the mandible and maxilla. No acute abnormalities demonstrated. CT cervical spine: FINDINGS: Sagittal and coronal reformatted images. Good alignment of the vertebral bodies. Body heights well maintained. Disc spaces are well maintained. The atlantoaxial joint is normal. The facets appear normal. There are no fractures. The surrounding soft tissues are normal. IMPRESSION: Normal CT cervical spine. Dictated by: Dictated on workstation # [id number] Dict: 07/05/18 1556 Trans: 07/05/18 1636 Interpreted by: ISABEL CASTELLON MD Electronically signed by: ISABEL CASTELLON MD 07/05/18 1636 Departure Impression Primary Impression: Minor head injury Additional Impression: Laceration Disposition: 01 HOME, SELF-CARE Condition: Departure-Patient Inst. Decision time for Depature: 16:47 Referrals: NO,LOCAL PHYSICIAN (PCP) Primary Care Physician Patient Instructions: Laceration Repair With Tim (DC), Minor Head Injury ( DC) Add. Discharge Instructions: Watch for signs of infection such as increased redness, drainage, swelling, fever. Return back to the emergency room in 7 days to have the tim removed. Tylenol and ibuprofen as directed by the bottle for pain ice to the sore areas a 20 minute intervals. Follow up with her primary care provider within 1 week for recheck. Return back to the emergency room should you develop any neurological complications such as dizziness, nausea, vomiting, loss of consciousness, or any other concerns as needed. All discharge instructions reviewed with patient and/or family. Voiced understanding. ISIS ORDRIGUEZ Jul 05, 2018 15:41
--- NOTE | 2018-07-05 16:07 | Diagnostic Imaging Report ---
PROCEDURE: CT head, face, and cervical spine without contrast. TECHNIQUE: Multiple contiguous axial images were obtained through the head, neck, and facial bones without the use of intravenous contrast. Sagittal and coronal reformations through the cervical spine and facial bones were also performed. INDICATION: Rolled down hill and bumped head. CT head: FINDINGS: Ventricles and cortical gyral pattern are normal. There is no intracranial hemorrhage. No mass effect. No extra-axial fluid collection. Basal cisterns are clear. Mastoid air cells are well aerated and clear. There is a large cyst in right maxillary sinus. No evidence of calvarial fractures. IMPRESSION: No acute intracranial abnormalities. CT facial bones: FINDINGS: No fractures are demonstrated throughout the facial bones. Zygomatic arches are intact. Nasal septum is midline. There is a large cyst in the right maxillary antrum measuring 2.5 cm. There is diffuse dental caries with multiple apical root abscesses noted both in the maxillary and mandibular molars. There are defects in the crown of the teeth as well. IMPRESSION: Severe dental caries both in the mandible and maxilla. No acute abnormalities demonstrated. CT cervical spine: FINDINGS: Sagittal and coronal reformatted images. Good alignment of the vertebral bodies. Body heights well maintained. Disc spaces are well maintained. The atlantoaxial joint is normal. The facets appear normal. There are no fractures. The surrounding soft tissues are normal. IMPRESSION: Normal CT cervical spine. Dictated by: Dictated on workstation # [id number]
[2018-07-05 16:56] VITALS: BP 132/80
[2018-07-05] MEDS ORDERED: ACETAMINOPHEN 500 MG TAB (TYLENOL) PO ONE (17:00)
== END 2018-07-05 16:59 | disposition home or self-care (01) ==
LOC: EDUNIT# 14:57 → ER 14:58
DX: S09.90XA Unspecified injury of head, initial encounter (principal); S01.01XA Laceration without foreign body of scalp, initial encounter; J45.909 Unspecified asthma, uncomplicated; G40.909 Epilepsy, unspecified, not intractable, without status epilepticus; K21.9 Gastro-esophageal reflux disease without esophagitis; R40.2142 Coma scale, eyes open, spontaneous, at arrival to emergency department; R40.2252 Coma scale, best verbal response, oriented, at arrival to emergency department; R40.2362 Coma scale, best motor response, obeys commands, at arrival to emergency department; Z87.442 Personal history of urinary calculi; Z88.6 Allergy status to analgesic agent; Z79.51 Long term (current) use of inhaled steroids; W17.89XA Other fall from one level to another, initial encounter
CPT/HCPCS: 70450; 70486; 72125

== ENCOUNTER 2019-08-16 10:57 | Emergency (ER) | payer OTHER ==
[~2019-08-16] VITALS: Ht 170 cm; Wt 61.3 kg
--- NOTE | 2019-08-16 12:06 | ED Trauma-Multisystem ---
General Chief Complaint: Trauma-Non Activation Stated Complaint: HEAD INJ;R WRIST INJ Nursing Triage Note: PT PRESENTS TO ED WITH COMPLAINTS OF HEAD, R JAW, AND R WRIST PAIN AFTER FALLING DOWN STEPS THIS AM. History of Present Illness Date Seen by Provider: Aug 16, 2019 Time Seen by Provider: 11:50 Initial Comments 29 year old male, feel down 4 stairs. He was going down stairs, was carrying a mop and tripped on the mop, causing him to fall and hit the right side of face, right writs and right ribs. His last Tetanus was in 2016 Location Injury Occurred: HOME RESIDENCE Occurred: Just Prior to Arrival Pain/Injury Location: Chest (right ribs), Face, Upper Extremity (right wrist, previous scaphoid fracture with ORIF) Loss of Consciousness: No Loss of Consciousness Associated Symptoms (Fall): Denies Symptoms Allergies and Home Medications Allergies Coded Allergies: tramadol (Unverified Allergy, Unknown, 06/27/14) Uncoded Allergies: NKDA (Allergy, Mild, 02/26/09) Home Medications Albuterol 8.5 Gm Hfa.aer.ad, 2 PUFF IH Q4H PRN for SHORTNESS OF BREATH, (Reported) 2 PUFFS Albuterol/Ipratropium 3 Ml Nebu, 3 ML INH QID Prescribed by: LEONARDA GARCIA on 08/05/14 1141 Patient Home Medication List Home Medication List Reviewed: Yes Review of Systems Review of Systems Constitutional: no symptoms reported, see HPI Eyes: No Symptoms Reported, See HPI; Denies Blurred Vision, Denies Decreased Acuity, Denies Photophobia, Denies Vision Changes Ears: No Symptoms Reported, See HPI Nose: No Symptoms Reported, See HPI Mouth: See HPI, Pain (right jaw pain, No Pain at TMJ) Throat: No Symptoms to Report, See HPI Respiratory: no symptoms reported, see HPI All Other Systems Reviewed Negative Unless Noted: Yes Past Yxktrnr-Itmbcd-Jotkjn Hx Past Med/Social Hx: Reviewed Nursing Past Med/Soc Hx Patient Social History Alcohol Use: Denies Use Recreational Drug Use: No Drug of Choice: marijuana Smoking Status: Current Everyday Smoker Type Used: Cigarettes Recent Hopitalizations: No Physical Abuse: No Sexual Abuse: No Mistreated: No Fear: No Immunizations Up To Date Tetanus Booster (TDap): Less than 5yrs Seasonal Allergies Seasonal Allergies: Yes (Ragweed and pollen) Past Medical History Surgeries: Yes (MOUTH--SPACER AND PULLED 2 TEETH, FX SCAPULA, r wrist) Orthopedic Respiratory: Yes Asthma Cardiac: No Neurological: Yes Seizure Disorder Reproductive Disorders: No Sexually Transmitted Disease: No Genitourinary: No Kidney Stones Gastrointestinal: No Gastroesophageal Reflux Musculoskeletal: Yes (screw in right wrist) Chronic Back Pain, Fractures Endocrine: No HEENT: No Cancer: No Psychosocial: No Integumentary: Yes Eczema Blood Disorders: No Adverse Reaction/Blood Tranf: No Family Medical History No Pertinent Family Hx Physical Exam Vital Signs Vital Signs - First Documented 08/16/19 11:55 Temp 36.9 Pulse 101 Resp 20 B/P (MAP) 131/93 (106) Pulse Ox 98 Height, Weight, BMI Height: 5'7.00" Weight: 140lbs. oz. 63.389225ts; 25.74 BMI Method:Stated General Appearance: No Apparent Distress, WD/WN Head: No Evidence of Injury, Contusions (right forehead at hair line); No Active Bleeding, No La's Sign Eyes: Bilateral Eye Normal Inspection, Bilateral Eye PERRL, Bilateral Eye EOMI Ears, Nose, Throat: Hearing Grossly Normal, No Evidence of ENT Injury, No Dental Injury; No Hemotympanum, No Midface Instability, No Dental Injury Neck: Full Range of Motion, Normal Inspection, Non Tender, Supple Cardiovascular: Regular Rate, Rhythm, No Edema, No Murmur, Normal Peripheral Pulses Respiratory: Lungs Clear, Normal Breath Sounds, Other (pain in right upper ribs) Gastrointestinal: Normal Bowel Sounds, Non Tender, Soft Extremity: Normal Capillary Refill, Normal Inspection, Normal Range of Motion, Other (pain and limitation of motion right wrist, chronic) Neurologic/Psychiatric: Alert, Oriented x3, No Motor/Sensory Deficits, Normal Mood/Affect Skin: Normal Color, Warm/Dry Progress/Results/Core Measures Results/Orders My Orders Orders - LAURE JEAN-BAPTISTE Wrist, Right, 3 Views Or More (08/16/19 12:00) Ct Head/Maxillofacial Wo (08/16/19 12:03) Ribs, Right 2-3 Views (08/16/19 12:03) Acetaminophen Tablet/Caplet (Tylenol T (08/16/19 12:11) Vital Signs/I&O 08/16/19 08/16/19 08/16/19 11:55 12:04 13:34 Temp 36.9 36.9 36.9 Pulse 101 101 90 Resp 20 20 20 B/P (MAP) 131/93 (106) 131/93 (106) 129/80 (106) Pulse Ox 98 98 98 Blood Pressure Mean: 106 Progress Progress Note : Time: 11:50 Progress Note Patient seen and evaluated, we'll obtain CT of the head and x-rays of the ribs and right wrist. 1240 diagnostic studies negative. Discharge instructions and return precautions reviewed with patient. Diagnostic Imaging Diagonstic Imaging: Xray Comments NAME: BRI JONES Rosemary [facility] REC#: [id number] PT STATUS: REG ER : 1990 PHYSICIAN: LAURE JEAN-BAPTISTE ADMIT DATE: 08/16/19/ER Draft Date of Exam:08/16/19 RIBS, RIGHT 2-3 VIEWS INDICATION: Fall with right-sided rib pain. TIME OF EXAMINATION: 12:12 PM. TECHNIQUE: Three views of the right ribs were obtained. FINDINGS: No displaced rib fracture is detected. No parenchymal contusion, effusion, or pneumothorax is seen. IMPRESSION: No displaced rib fracture is detected. Dictated on workstation # [id number] Dict: 08/16/19 1220 Trans: 08/16/19 1221 [id number] Interpreted by: DION MEEKS MD Electronically signed by: Reviewed: Reviewed by Me Diagonstic Imaging: Xray Plain Films/CT/US/NM/MRI: other (wrist) Comments NAME: BRI JONES Rosemary [facility] REC#: [id number] PT STATUS: REG ER : 1990 PHYSICIAN: LAURE JEAN-BAPTISTE ADMIT DATE: 08/16/19/ER Draft Date of Exam:08/16/19 WRIST, RIGHT, 3 VIEWS OR MORE INDICATION: Fall, pain in the right wrist. TIME OF EXAM: 12:10 p.m. COMPARISON: Correlation is made with prior right wrist radiographs from 08/07/2015. FINDINGS: Postsurgical changes involving the scaphoid are again noted. There continues to be lucency about the scaphoid hardware, similar to prior exam. There is some volume loss in the proximal pole of the navicular, similar to prior study. A component of osteonecrosis cannot be entirely excluded. Scapholunate space is within normal limits. Distal radius and ulna are intact. No acute fractures are seen. Carpus appears to be intact. IMPRESSION: Chronic changes to the scaphoid, as described and similar to prior study from 08/07/2015. No new abnormality is seen. No acute bony abnormality is seen. Dictated on workstation # [id number] Dict: 08/16/19 1218 Trans: 08/16/19 1221 [id number] Interpreted by: DION MEEKS MD Electronically signed by: Reviewed: Reviewed by Me Diagonstic Imaging: CT Plain Films/CT/US/NM/MRI: head Comments NAME: BRI JONES [facility] REC#: [id number] PT STATUS: REG ER : 1990 PHYSICIAN: LAURE JEAN-BAPTISTE ADMIT DATE: 08/16/19/ER Draft Date of Exam:08/16/19 CT HEAD/MAXILLOFACIAL WO PROCEDURE: CT head and maxillofacial without contrast. TECHNIQUE: Multiple contiguous axial images were obtained through the head and facial bones without the use of intravenous contrast. Auto Exposure Controls were utilized during the CT exam to meet ALARA standards for radiation dose reduction. INDICATION: Fall with head and maxillofacial injuries. FINDINGS: CT HEAD: CT images of the head were obtained. FINDINGS: Ventricles and sulci are within normal limits for size. There is no intracranial hemorrhage identified. There is no abnormal mass effect or shift of midline structures. IMPRESSION: Unremarkable CT of the head. Maxillofacial CT: Globes are intact bilaterally without evidence of retrobulbar hematoma. No acute facial fracture is identified. There is mild mural thickening throughout multiple bilateral ethmoid air cells with moderate mural thickening in both maxillary sinuses. There is also moderate mural thickening in the left sphenoid sinus. Temporomandibular joints are unremarkable, bilaterally. There are multiple lucencies adjacent to the roots of teeth bilaterally, likely due to suboptimal dentition and multiple caries with periapical abscesses. IMPRESSION: 1. Pansinusitis with numerous dental caries and probable periapical abscesses. Dental correlation is recommended. 2. There is extensive chronic sinus disease without acute maxillofacial abnormality identified. Dictated on workstation # [id number] Dict: 08/16/19 1304 Trans: 08/16/19 1309 [id number] Interpreted by: HERI RODAS MD Electronically signed by: Reviewed: Reviewed by Me Departure Impression Primary Impression: Status post fall Additional Impression: Minor head injury Qualified Codes: S09.90XA - Unspecified injury of head, initial encounter Disposition: 01 HOME, SELF-CARE Condition: Improved Departure-Patient Inst. Decision time for Depature: 13:25 Referrals: NO,LOCAL PHYSICIAN (PCP/Family) Primary Care Physician Patient Instructions: Preventing Falls, Closed Head Injury (DC) Add. Discharge Instructions: You may take Tylenol 650 mg every 6 hours as needed for pain. Follow-up with Dr. Duffy for your wrist. Brain rest: Limit use of computers, cell phones, videogames. Increase water intake, 16 ounces every 2 hours while awake. Keep your feet on the ground, do not do any work or urine elevated surfaces. Follow-up with your primary care provider if symptoms are not improving or worsen. Return to the emergency department for new, urgent health care needs. All discharge instructions reviewed with patient and/or family. Voiced understanding. LAURE JEAN-BAPTISTE Aug 16, 2019 12:06
[2019-08-16] MEDS ORDERED: ACETAMINOPHEN 325 MG TABLET PO STA (12:11)
--- NOTE | 2019-08-16 12:21 | Diagnostic Imaging Report ---
INDICATION: Fall with right-sided rib pain. TIME OF EXAMINATION: 12:12 PM. TECHNIQUE: Three views of the right ribs were obtained. FINDINGS: No displaced rib fracture is detected. No parenchymal contusion, effusion, or pneumothorax is seen. IMPRESSION: No displaced rib fracture is detected. Dictated by: Dictated on workstation # [id number]
--- NOTE | 2019-08-16 12:22 | Diagnostic Imaging Report ---
INDICATION: Fall, pain in the right wrist. TIME OF EXAM: 12:10 p.m. COMPARISON: Correlation is made with prior right wrist radiographs from 08/07/2015. FINDINGS: Postsurgical changes involving the scaphoid are again noted. There continues to be lucency about the scaphoid hardware, similar to prior exam. There is some volume loss in the proximal pole of the navicular, similar to prior study. A component of osteonecrosis cannot be entirely excluded. Scapholunate space is within normal limits. Distal radius and ulna are intact. No acute fractures are seen. Carpus appears to be intact. IMPRESSION: Chronic changes to the scaphoid, as described and similar to prior study from 08/07/2015. No new abnormality is seen. No acute bony abnormality is seen. Dictated by: Dictated on workstation # [id number]
--- NOTE | 2019-08-16 13:09 | Diagnostic Imaging Report ---
PROCEDURE: CT head and maxillofacial without contrast. TECHNIQUE: Multiple contiguous axial images were obtained through the head and facial bones without the use of intravenous contrast. Auto Exposure Controls were utilized during the CT exam to meet ALARA standards for radiation dose reduction. INDICATION: Fall with head and maxillofacial injuries. FINDINGS: CT HEAD: CT images of the head were obtained. FINDINGS: Ventricles and sulci are within normal limits for size. There is no intracranial hemorrhage identified. There is no abnormal mass effect or shift of midline structures. IMPRESSION: Unremarkable CT of the head. Maxillofacial CT: Globes are intact bilaterally without evidence of retrobulbar hematoma. No acute facial fracture is identified. There is mild mural thickening throughout multiple bilateral ethmoid air cells with moderate mural thickening in both maxillary sinuses. There is also moderate mural thickening in the left sphenoid sinus. Temporomandibular joints are unremarkable, bilaterally. There are multiple lucencies adjacent to the roots of teeth bilaterally, likely due to suboptimal dentition and multiple caries with periapical abscesses. IMPRESSION: 1. Pansinusitis with numerous dental caries and probable periapical abscesses. Dental correlation is recommended. 2. There is extensive chronic sinus disease without acute maxillofacial abnormality identified. Dictated by: Dictated on workstation # [id number]
[2019-08-16 13:34] VITALS: BP 129/80
== END 2019-08-16 13:34 | disposition home or self-care (01) ==
LOC: EDUNIT# 10:57 → ER 10:58
DX: S09.90XA Unspecified injury of head, initial encounter (principal); J45.909 Unspecified asthma, uncomplicated; G40.909 Epilepsy, unspecified, not intractable, without status epilepticus; K21.9 Gastro-esophageal reflux disease without esophagitis; F17.210 Nicotine dependence, cigarettes, uncomplicated; Z87.442 Personal history of urinary calculi; Z88.5 Allergy status to narcotic agent; W10.9XXA Fall (on) (from) unspecified stairs and steps, initial encounter
CPT/HCPCS: 70450; 70486; 71100; 73110

== ENCOUNTER 2019-10-31 08:37 | Emergency (ER) | payer OTHER ==
[~2019-10-31] VITALS: Ht 170.2 cm; Wt 63.5 kg
[2019-10-31] MEDS ORDERED: RT-ALBUTEROL SULF 2.5 MG/3 ML PRE-MIX VIAL ONE (08:38)
[2019-10-31] MEDS ORDERED: RT-ALBUTEROL SULF 2.5 MG/3 ML PRE-MIX VIAL INH STA ×2 (08:44→08:49)
[2019-10-31] MEDS ORDERED: predniSONE 20 MG TAB PO ONE (08:45)
--- NOTE | 2019-10-31 08:49 | ED Respiratory ---
General Chief Complaint: Respiratory Problems Stated Complaint: ASTHMA ATTACK Nursing Triage Note: PT AMB TO [facility] 5 WITH COMPLAINT OF ASTHMA ATTACK. STATES STARTED AT 0500. STATES TRIED DRINKING CAFFEINE AND OTHER HOME REMEDIES, BUT DID NOT WORK. STATES DOES NOT HAVE AN ALBUTEROL INHALER, UNABLE TO AFFORD. Source: patient Exam Limitations: no limitations History of Present Illness Date Seen by Provider: Oct 31, 2019 Time Seen by Provider: 08:37 Initial Comments Here with report of acute onset of asthma started at 5 AM. Notes that he is out of his albuterol inhaler due to prescription ran out and he states he actually can't afford to buy 1. He tried other methods to help read uses asthma but that did not work and ultimately presented here for evaluation and care. Denies fevers, vomiting or diarrhea. He does not smoke but does vape occasionally. Timing/Duration: yesterday, getting worse Severity: moderate Prior Episodes/Possible Cause: occasional episodes Modifying Factors: Worse With Activity Associated Symptoms: cough; No fever/chills, No nasal congestion; shortness of breath; No sore throat; wheezing Allergies and Home Medications Allergies Coded Allergies: tramadol (Unverified Allergy, Unknown, 06/27/14) Uncoded Allergies: NKDA (Allergy, Mild, 02/26/09) Home Medications Albuterol 8.5 Gm Hfa.aer.ad, 2 PUFF IH Q4H PRN for SHORTNESS OF BREATH, (Reported) 2 PUFFS Albuterol Sulfate 1 Puff Puff, 2 PUFF INH Q4H PRN for WHEEZING 1 PUFF = 90 MCG Prescribed by: MAGALY HURTADO on 10/31/19 0856 Albuterol/Ipratropium 3 Ml Nebu, 3 ML INH QID Prescribed by: LEONARDA GARCIA on 08/05/14 1141 Prednisone 20 Mg Tab, 40 MG PO DAILY Prescribed by: MAGALY HURTADO on 10/31/19 0856 Patient Home Medication List Home Medication List Reviewed: Yes Review of Systems Review of Systems Constitutional: No chills, No fever EENTM: see HPI Respiratory: cough, wheezing Cardiovascular: no symptoms reported Gastrointestinal: no symptoms reported Skin: no symptoms reported Past Iltambd-Mxsfhw-Uzmwxh Hx Past Med/Social Hx: Reviewed Nursing Past Med/Soc Hx Patient Social History Alcohol Use: Denies Use Recreational Drug Use: Yes Drug of Choice: marijuana Smoking Status: Current Everyday Smoker Type Used: Cigarettes, Electronic/Vapor Recent Foreign Travel: No Contact w/Someone Who Travel: No Recent Infectious Disease Expo: No Recent Hopitalizations: No Immunizations Up To Date Tetanus Booster (TDap): Less than 5yrs Seasonal Allergies Seasonal Allergies: Yes (Ragweed and pollen) Past Medical History Surgeries: Yes (MOUTH--SPACER AND PULLED 2 TEETH, FX SCAPULA, r wrist) Orthopedic Respiratory: Yes Asthma Cardiac: No Neurological: Yes Seizure Disorder Reproductive Disorders: No Sexually Transmitted Disease: No Genitourinary: No Kidney Stones Gastrointestinal: No Gastroesophageal Reflux Musculoskeletal: Yes (screw in right wrist) Chronic Back Pain, Fractures Endocrine: No HEENT: No Cancer: No Psychosocial: No Integumentary: Yes Eczema Blood Disorders: No Adverse Reaction/Blood Tranf: No Family Medical History Reviewed Nursing Family Hx No Pertinent Family Hx Physical Exam Vital Signs - First Documented 10/31/19 08:38 Pulse 112 Resp 20 B/P (MAP) 163/94 (117) Pulse Ox 96 O2 Delivery Room Air Capillary Refill : Less Than 3 Seconds Height: 5'7.00" Weight: 140lbs. oz. 63.499947ua; 21.00 BMI Method:Stated General Appearance: no apparent distress HEENT: PERRL/EOMI, TMs normal, pharynx normal Neck: full range of motion, supple Respiratory: accessory muscle use, wheezing, expiration, inspiration Cardiovascular: no murmur, tachycardia Gastrointestinal: non tender, soft Extremities: non-tender, normal inspection Neurologic/Psychiatric: alert, oriented x 3 Skin: normal color, warm/dry Progress/Results/Core Measures Suspected Sepsis Recent Fever Within 48 Hours: No Infection Criteria Present: None New/Unexplained Altered Menta: No Sepsis Screen: No Definite Risk SIRS Temperature: Pulse: 112 Respiratory Rate: 20 Blood Pressure 163 /94 Mean: 117 Results/Orders My Orders Orders - MAGALY HURTADO MD Albuterol Pre-Mix Nebs (Rt) (Proventil (10/31/19 08:38) Albuterol Pre-Mix Nebs (Rt) (Proventil (10/31/19 08:44) Svn Small Volume Nebulizer (10/31/19 08:44) Prednisone Tablet (Deltasone Tablet) (10/31/19 08:45) Albuterol Pre-Mix Nebs (Rt) (Proventil (10/31/19 08:49) Svn Small Volume Nebulizer (10/31/19 08:49) Albuterol/Ipra Inhalation Soln (Duoneb I (10/31/19 09:15) Svn Small Volume Nebulizer (10/31/19 09:13) Albuterol/Ipra Inhalation Soln (Duoneb I (10/31/19 09:09) Medications Given in ED Current Medications Medications Dose Ordered Sig/Addy Route Start Time Stop Time Status Last Admin Dose Admin Albuterol Sulfate 2.5 mg STK-MED ONCE .ROUTE 10/31/19 08:38 10/31/19 08:43 DC 10/31/19 08:43 2.5 MG Albuterol/ Ipratropium 3 ml ONCE ONCE INH 10/31/19 09:15 10/31/19 09:16 DC 10/31/19 09:14 3 ML Vital Signs/I&O 10/31/19 10/31/19 10/31/19 10/31/19 08:38 08:44 08:51 09:14 Pulse 112 Resp 20 B/P (MAP) 163/94 (117) Pulse Ox 96 94 94 95 O2 Delivery Room Air Room Air Room Air Room Air Capillary Refill : Less Than 3 Seconds Blood Pressure Mean: 117 Progress Note : Progress Note Seen and evaluated. Albuterol nebulizer treatment and prednisone 40 mg by mouth. We will repeat albuterol neb and he is improved after the first one. Monitor patient. 0915: Much improved but still has faint wheeze. He is coughing better now. Duo neb ordered. Monitor patient. 0925: Overall much better. Discharged home with return precautions. Patient verbalize understanding instructions and agreement with plan. Departure Impression Primary Impression: Asthma exacerbation Qualified Codes: J45.21 - Mild intermittent asthma with (acute) exacerbation Disposition: HOME, SELF-CARE Condition: Improved Departure-Patient Inst. Decision time for Depature: 09:25 Referrals: [facility] [place] Primary Care Physician Patient Instructions: Asthma, Adult (DC) Add. Discharge Instructions: All discharge instructions reviewed with patient and/or family. Voiced understanding. Take medications as directed. Follow-up with your DrIlene in a few days for recheck as needed. Return for worse pain, breathing problems, weakness, fever, vomiting or other concerns as needed. Scripts Prednisone (Prednisone) 20 Mg Tab 40 MG PO DAILY, #8 TAB 0 Refills Prov: MAGALY HURTADO MD 10/31/19 Albuterol Sulfate (VENTOLIN HFA) 1 Puff Puff 2 PUFF INH Q4H PRN for WHEEZING, #1 INHALER 1 Refill 1 PUFF = 90 MCG Prov: MAGALY HURTADO MD 10/31/19 MAGALY HURTADO MD Oct 31, 2019 08:49
[2019-10-31] MEDS ORDERED: PRD20T PO (08:56)
[2019-10-31] MEDS ORDERED: RT-ALBUINH INH (08:56)
[2019-10-31] MEDS ORDERED: RT-ALBUTEROL/IPRATROPIUM 3 ML (DUONEB) VIAL ONE (09:09)
[2019-10-31] MEDS ORDERED: RT-ALBUTEROL/IPRATROPIUM 3 ML (DUONEB) VIAL INH ONE (09:15)
[2019-10-31 09:51] VITALS: BP 145/88
== END 2019-10-31 09:51 | disposition home or self-care (01) ==
LOC: EDUNIT# 08:37 → ER 08:39
DX: J45.901 Unspecified asthma with (acute) exacerbation (principal); G40.909 Epilepsy, unspecified, not intractable, without status epilepticus; K21.9 Gastro-esophageal reflux disease without esophagitis; F17.210 Nicotine dependence, cigarettes, uncomplicated; F17.290 Nicotine dependence, other tobacco product, uncomplicated; Z87.442 Personal history of urinary calculi; Z88.5 Allergy status to narcotic agent; Z79.52 Long term (current) use of systemic steroids
CPT/HCPCS: 94640; 99283

== ENCOUNTER 2022-07-23 21:39 | Emergency (ER) | payer MEDICAID ==
[~2022-07-23] VITALS: Ht 170 cm; Wt 72.6 kg
[~2022-07-23 21:39] MED LIST changes: +RT-ALBUINH INH
[2022-07-23] MEDS ORDERED: LACTATED RINGERS 1,000 ML IV STA (22:05)
--- NOTE | 2022-07-23 22:13 | ED Chest Pain ---
General Chief Complaint: Chest Wall Stated Complaint: CHEST PAIN Nursing Triage Note: brought in by [facility] for stabbing chest pain radiating to right shoulder/down right arm x30 min. pt reports pain started while watching tv. denies injury/cardiac hx. pt reports increased etoh consumption/anxiety this week. Source: patient Exam Limitations: no limitations History of Present Illness Date Seen by Provider: Jul 23, 2022 Time Seen by Provider: 21:52 Initial Comments Patient to the ER by EMS from home with chief complaint that he has been having some right shoulder pain and chest pain since earlier this morning. He took a nap and when he woke up he woke up with the left-sided chest pain about a 5 out of 10. EMS put nitroglycerin paste on his chest and it made the pain go away but his right shoulder is still hurting 3 or 4 out of 10. He is not having any nausea shortness of air or coughing. No fevers or chills. No history of heart disease. Is been told he is borderline hypertensive but does not take any medications for it. He has a history of asthma but does not feel like he is having any wheezing or shortness of air. He has been on a 5-day chris drinking whiskey about 1/5 a day after his left him and took his kids. He reached out for community health to get some counseling and they are 3 to 4 months out. He is not suicidal at this time. No primary familial history of early onset coronary disease. He does smoke cigarettes. He denies a history of hyperlipidemia or diabetes. Allergies and Home Medications Allergies Coded Allergies: Fish Containing Products (Verified Allergy, Unknown, 07/23/22) tramadol (Unverified Allergy, Unknown, 06/27/14) Patient Home Medication List Home Medication List Reviewed: Yes Albuterol (Proair Hfa) 8.5 Gm Hfa.aer.ad, 2 PUFF IH Q4H PRN for SHORTNESS OF BREATH, (Reported) Entered as Reported by: MEENA RODRIGUEZ on 08/05/14 0928 Albuterol Sulfate (Ventolin Hfa) 1 Puff Puff, 2 PUFF INH Q4H PRN for WHEEZING Prescribed by: MAGALY HURTADO on 10/31/19 0856 Albuterol/Ipratropium (Duoneb Rt) 3 Ml Nebu, 3 ML INH QID Prescribed by: LEONARDA GARCIA on 08/05/14 1141 Discontinued Medications Prednisone (Prednisone) 20 Mg Tab, 40 MG PO DAILY Discontinued Reason: Referral/FU Appt-Addtl Prescribed by: MAGALY HURTADO on 10/31/19 0856 Last Action: Discontinued Review of Systems Review of Systems Constitutional: No chills, No diaphoresis, No fever EENTM: No Blurred Vision, No Double Vision Respiratory: Denies Cough, Denies Orthopnea, Denies Shortness of Air Cardiovascular: See HPI, Chest Pain; Denies Edema, Denies Irregular Heart Rate Gastrointestinal: Denies Abdomen Distended, Denies Abdominal Pain, Denies Constipated, Denies Diarrhea, Denies Nausea Genitourinary: Denies Burning, Denies Discharge Musculoskeletal: No back pain, No joint pain Skin: No pruritus, No rash Psychiatric/Neurological: Denies Headache, Denies Numbness All Other Systems Reviewed Negative Unless Noted: Yes Past Ltzzlka-Kfccvd-Dijqhc Hx Patient Social History Tobacco Use?: Yes Substance use?: Yes Substance type: Marijuana Alcohol Use?: Yes Alcohol Frequency: Daily Pt feels they are or have been: No Immunizations Up To Date Tetanus Booster (TDap): Less than 5yrs First/Initial COVID19 Vaccinat: x2 Seasonal Allergies Seasonal Allergies: Yes (Ragweed and pollen) Past Medical History Surgery/Hospitalization HX: right wrist, asthma, depression Surgeries: Yes (MOUTH--SPACER AND PULLED 2 TEETH, FX SCAPULA, r wrist) Orthopedic Respiratory: Yes Asthma Cardiac: No Neurological: Yes Seizure Disorder Reproductive Disorders: No Sexually Transmitted Disease: No Genitourinary: No Kidney Stones Gastrointestinal: No Gastroesophageal Reflux Musculoskeletal: Yes (screw in right wrist) Chronic Back Pain, Fractures Endocrine: No HEENT: No Cancer: No Psychosocial: No Integumentary: Yes Eczema Blood Disorders: No Adverse Reaction/Blood Tranf: No Family Medical History No Pertinent Family Hx Physical Exam Vital Signs Vital Signs - First Documented 07/23/22 21:39 Temp 36.5 Pulse 120 Resp 18 B/P (MAP) 130/97 (108) Pulse Ox 97 O2 Delivery Room Air Capillary Refill : Less Than 3 Seconds Height, Weight, BMI Height: 5'7.00" Weight: 140lbs. oz. 63.246341ql; 25.00 BMI Method:Stated General Appearance: WD/WN, Anxious, Mild Distress HEENT: PERRL/EOMI, Pharynx Normal; No Moist Mucous Membranes Neck: Full Range of Motion, Normal Inspection Respiratory: Chest Non Tender, Lungs Clear, Normal Breath Sounds, No Accessory Muscle Use, No Respiratory Distress Cardiovascular: Regular Rate, Rhythm, No Edema, Normal Peripheral Pulses, Tac hycardia (105) Gastrointestinal: Normal Bowel Sounds, Non Tender, Soft Extremity: Normal Capillary Refill, Normal Inspection, No Pedal Edema Neurologic/Psychiatric: Alert, Oriented x3 Skin: Normal Color, Warm/Dry Progress/Results/Core Measures Results/Orders Lab Results Laboratory Tests Test 07/23/22 21:45 07/23/22 23:42 Range/Units White Blood Count 5.1 4.3-11.0 10^3/uL Red Blood Count 4.61 4.30-5.52 10^6/uL Hemoglobin 15.6 13.3-17.7 g/dL Hematocrit 43 40-54 % Mean Corpuscular Volume 92 80-99 fL Mean Corpuscular Hemoglobin 34 25-34 pg Mean Corpuscular Hemoglobin Concent 37 H 32-36 g/dL Red Cell Distribution Width 12.5 10.0-14.5 % Platelet Count 237 130-400 10^3/uL Mean Platelet Volume 9.3 9.0-12.2 fL Immature Granulocyte % (Auto) 0 % Neutrophils (%) (Auto) 46 42-75 % Lymphocytes (%) (Auto) 37 12-44 % Monocytes (%) (Auto) 16 H 0-12 % Eosinophils (%) (Auto) 1 0-10 % Basophils (%) (Auto) 1 0-10 % Neutrophils # (Auto) 2.3 1.8-7.8 10^3/uL Lymphocytes # (Auto) 1.9 1.0-4.0 10^3/uL Monocytes # (Auto) 0.8 0.0-1.0 10^3/uL Eosinophils # (Auto) 0.1 0.0-0.3 10^3/uL Basophils # (Auto) 0.0 0.0-0.1 10^3/uL Immature Granulocyte # (Auto) 0.0 0.0-0.1 10^3/uL Prothrombin Time 12.5 12.2-14.7 SEC INR Comment 0.9 0.8-1.4 Activated Partial Thromboplast Time 26 24-35 SEC Sodium Level 142 135-145 MMOL/L Potassium Level 3.6 3.6-5.0 MMOL/L Chloride Level 105 98-107 MMOL/L Carbon Dioxide Level 22 21-32 MMOL/L Anion Gap 15 H 5-14 MMOL/L Blood Urea Nitrogen 7 7-18 MG/DL Creatinine 0.97 0.60-1.30 MG/DL Estimat Glomerular Filtration Rate 107 BUN/Creatinine Ratio 7 Glucose Level 98 70-105 MG/DL Calcium Level 8.7 8.5-10.1 MG/DL Corrected Calcium 8.5 8.5-10.1 MG/DL Magnesium Level 1.5 L 1.6-2.4 MG/DL Total Bilirubin 0.4 0.1-1.0 MG/DL Aspartate Amino Transf (AST/SGOT) 85 H 5-34 U/L Alanine Aminotransferase (ALT/SGPT) 75 H 0-55 U/L Alkaline Phosphatase 80 40-136 U/L Myoglobin 19.6 10.0-92.0 NG/ML Troponin I < 0.028 < 0.028 <0.028 NG/ML Total Protein 7.2 6.4-8.2 GM/DL Albumin 4.3 3.2-4.5 GM/DL Lipase 214 H 8-78 U/L My Orders Orders - DANILO DEXTER Cbc With Automated Diff (07/23/22 22:05) Magnesium (07/23/22 22:05) Chest 1 View, Ap/Pa Only (07/23/22 22:05) Comprehensive Metabolic Panel (07/23/22 22:05) Myoglobin Serum (07/23/22 22:05) Protime With Inr (07/23/22 22:05) Partial Thromboplastin Time (07/23/22 22:05) O2 (07/23/22 22:05) Monitor-Rhythm Ecg Trace Only (07/23/22 22:05) Lipid Panel (07/24/22 06:00) Ed Iv/Invasive Line Start (07/23/22 22:05) Lipase (07/23/22 22:05) Troponin I Maurice (07/23/22 22:05) Aspirin Chewable Tablet (Baby Aspirin Ch (07/23/22 22:15) Pantoprazole Injection (Protonix Injecti (07/23/22 22:15) Thiamine Tablet (Vitamin B-1 Tablet) (07/23/22 22:15) Folic Acid Tablet (Folic Acid Tablet) (07/23/22 22:15) Ed Iv/Invasive Line Start (07/23/22 22:05) Lactated Ringers (Lr 1000 Ml Iv Solution (07/23/22 22:15) Lactated Ringers (Lr 1000 Ml Iv Solution (07/23/22 22:05) Ekg Tracing (07/23/22 22:41) Magnesium 1 Gm/100 Ml Ivpb (Magnesium Douglas (07/23/22 22:45) Troponin I Gaines (07/24/22 00:00) Troponin I Maurice (07/24/22 00:02) Troponin I Gaines (07/24/22 00:03) Medications Given in ED Current Medications Medications Dose Ordered Sig/Addy Route Start Time Stop Time Status Last Admin Dose Admin Folic Acid 1 mg ONCE ONCE PO 07/23/22 22:15 07/23/22 22:16 DC 07/23/22 22:36 1 MG Lactated Ringer's 1,000 ml @ 0 mls/hr Q0M ONCE IV 07/23/22 22:15 07/23/22 22:16 DC 07/23/22 22:36 0 MLS/HR Magnesium Sulfate/ Dextrose 100 ml @ 100 mls/hr ONCE ONCE IV 07/23/22 22:45 07/23/22 23:44 DC 07/23/22 22:55 100 MLS/HR Pantoprazole 40 mg ONCE ONCE IV 07/23/22 22:15 07/23/22 22:16 DC 07/23/22 22:36 40 MG Thiamine HCl 100 mg ONCE ONCE PO 07/23/22 22:15 07/23/22 22:16 DC 07/23/22 22:36 100 MG Vital Signs/I&O 07/23/22 21:39 Temp 36.5 Pulse 120 Resp 18 B/P (MAP) 130/97 (108) Pulse Ox 97 O2 Delivery Room Air 07/24/22 00:00 Intake Total 100 ml Balance 100 ml Blood Pressure Mean: 108 Progress Progress Note : Time: 22:13 Progress Note Discussed the case with [facility]. The patient does not need a screening but we would like them to reach out to him outpatient during business hours. Spoke to Dasha at [facility] and she will send an email to [facility] to reach out to the patient in the morning. The patient is agreeable with this plan. We will get a initial set of labs and a troponin. Because he got relief from the nitroglycerin which could be related to esophageal spasms or other things we will go ahead and do a delta troponin 2 hours out. We will give him some fluids for his apparent dehydration and reevaluate. Initial ECG Impression Date: Jul 23, 2022 Initial ECG Impression Time: 21:37 Initial ECG Rate: 105 Initial ECG Rhythm: S.Tach Initial ECG Intervals: Normal Initial ECG Impression: Normal Comment Sinus tachycardia without any clinically relevant ST elevation or depression. Diagnostic Imaging Diagonstic Imaging: Xray Plain Films/CT/US/NM/MRI: chest Comments [facility] [place], [place] NAME: BRI JONES [facility] REC#: [id number] PT STATUS: REG ER : 1990 PHYSICIAN: DANILO DEXTER MD ADMIT DATE: 07/23/22/ER Signed Date of Exam:07/23/22 CHEST 1 VIEW, AP/PA ONLY HISTORY: Chest pain TECHNIQUE: Frontal view of the chest. COMPARISON: 06/27/2014 FINDINGS: Lung volumes are mildly large. No consolidation is seen. There is no pleural effusion or pneumothorax. The cardiac silhouette is normal in size. IMPRESSION: 1. No acute pulmonary abnormality. Dictated by: Dictated on workstation # [id number] Dict: 07/23/222235 Trans: 07/23/222255 [facility] [id number] Interpreted by: LELIA SMART MD Electronically signed by: LELIA SMART MD 07/23/226 Reviewed: Reviewed by Me Departure Impression Primary Impression: Pancreatitis Qualified Codes: K85.20 - Alcohol induced acute pancreatitis without necrosis or infection Additional Impressions: Interpersonal relationship problem without mental disorder Alcohol use disorder Disposition: 01 HOME, SELF-CARE Condition: Stable Departure-Patient Inst. Decision time for Depature: 00:36 Referrals: [facility] (PCP/Family) Primary Care Physician Patient Instructions: Acute Pancreatitis, Alcohol Use Disorder ED Add. Discharge Instructions: I highly recommend you never drink again as this can make your pancreatitis flareup. There is no known safe amount of alcohol with a history of pancreatitis. Drink lots of fluids like water, sports drinks etc. Expect a phone call from [facility] in the morning. If you not hear from them you may call them at any time 24 hours a day at [phone]. Return to the ER for significantly worsening symptoms. Ondansetron 1 tablet every 6 hours as needed for nausea and/or vomiting. If not seeing some improvement in 30 minutes then take a second tablet. Take omeprazole or pantoprazole 40 mg daily to reduce stomach acid until your abdomen pain improves. All discharge instructions reviewed with patient and/or family. Voiced understanding. Scripts Ondansetron (Ondansetron Odt) 4 Mg Tab.rapdis 4-8 MG PO Q6H PRN for NAUSEA/VOMITING, #15 TAB 0 Refills Prov: DANILO DEXTER 07/24/22 Work/School Note: Work Release Form Date Seen in the Emergency Department: Jul 23, 2022 Return to Work: Jul 24, 2022 Restrictions: No Restrictions DANILO DEXTER Jul 23, 2022 22:13
[2022-07-23 22:15] LABS: BASOPHILS % (AUTO) 1 % (0-10); EOSINOPHILS # (AUTO) 0.1 10^3/uL (0.0-0.3); EOSINOPHILS % (AUTO) 1 % (0-10); HEMATOCRIT 43 % (40-54); HEMOGLOBIN 15.6 g/dL (13.3-17.7); LYMPHOCYTES # (AUTO) 1.9 10^3/uL (1.0-4.0); LYMPHOCYTES % (AUTO) 37 % (12-44); MEAN CORPUSCULAR HEMOGLOBIN 34 pg (25-34); MEAN CORPUSCULAR HGB CONC 37 g/dL (32-36); MEAN CORPUSCULAR VOLUME 92 fL (80-99); MEAN PLATELET VOLUME 9.3 fL (9.0-12.2); MONOCYTES # (AUTO) 0.8 10^3/uL (0.0-1.0); MONOCYTES % (AUTO) 16 % (0-12); NEUTROPHILS # (AUTO) 2.3 10^3/uL (1.8-7.8); NEUTROPHILS % (AUTO) 46 % (42-75); PLATELET COUNT 237 10^3/uL (130-400); WHITE BLOOD COUNT 5.1 10^3/uL (4.3-11.0)
[2022-07-23] MEDS ORDERED: THIAMINE 100 MG (VITAMIN B-1) TAB PO ONE (22:15)
[2022-07-23] MEDS ORDERED: PANTOPRAZOLE 40 MG (PROTONIX) VIAL IV ONE (22:15)
[2022-07-23] MEDS ORDERED: FOLIC ACID 1 MG TAB PO ONE (22:15)
[2022-07-23] MEDS ORDERED: LACTATED RINGERS 1,000 ML IV ONE (22:15)
[2022-07-23] MEDS ORDERED: ASPIRIN 81 MG CHEW (CHILDREN'S ASA) PO ONE (22:15)
[2022-07-23 22:21] LABS: INR 0.9 (0.8-1.4); PROTHROMBIN TIME PATIENT 12.5 SEC (12.2-14.7)
[2022-07-23 22:28] LABS: ALBUMIN 4.3 GM/DL (3.2-4.5); BILIRUBIN,TOTAL 0.4 MG/DL (0.1-1.0); CALCIUM 8.7 MG/DL (8.5-10.1); CREATININE SERUM 0.97 MG/DL (0.60-1.30); MAGNESIUM 1.5 MG/DL (1.6-2.4); POTASSIUM 3.6 MMOL/L (3.6-5.0); TOTAL PROTEIN 7.2 GM/DL (6.4-8.2)
--- NOTE | 2022-07-23 22:42 | Diagnostic Imaging Report ---
HISTORY: Chest pain TECHNIQUE: Frontal view of the chest. COMPARISON: 06/27/2014 FINDINGS: Lung volumes are mildly large. No consolidation is seen. There is no pleural effusion or pneumothorax. The cardiac silhouette is normal in size. IMPRESSION: 1. No acute pulmonary abnormality. Dictated by: Dictated on workstation # [id number]
[2022-07-23] MEDS ORDERED: MAGNESIUM 1 GM/100 ML IVPB 100 ML IV ONE (22:45)
[2022-07-24] MEDS ORDERED: ONDA4TAB11 PO (00:42)
[2022-07-24 00:46] VITALS: BP 129/84
== END 2022-07-24 00:49 | disposition home or self-care (01) ==
LOC: EDUNIT# 21:39 → ER 21:40
DX: K85.90 Acute pancreatitis without necrosis or infection, unspecified (principal); F10.10 Alcohol abuse, uncomplicated; Z63.0 Problems in relationship with spouse or partner; Z72.0 Tobacco use
CPT/HCPCS: 36415; 71045; 80053; 83690; 83735; 83874; 84484; 85025; 85610; 85730; 93005; 93041

== ENCOUNTER 2022-10-05 20:07 | Emergency (ER) | payer MEDICAID ==
[~2022-10-05] VITALS: Ht 170 cm; Wt 70.0 kg
[~2022-10-05 20:07] MED LIST changes: +ONDA4TAB11 PO
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
[2022-10-05] MEDS ORDERED: TETANUS,DIPTH,PERTUSS P/F (BOOSTRIX) 0.5 ML VIAL IM ONE (20:30)
[2022-10-05] MEDS ORDERED: LIDOCAINE 1% INJ 20 ML VIAL INJ ONE (20:30)
[2022-10-05 21:03] VITALS: BP 142/94
== END 2022-10-05 21:04 | disposition home or self-care (01) ==
LOC: EDUNIT# 20:07 → ER 20:10
DX: S01.01XA Laceration without foreign body of scalp, initial encounter (principal); S01.81XA Laceration without foreign body of other part of head, initial encounter; S09.90XA Unspecified injury of head, initial encounter; Z23 Encounter for immunization; W51.XXXA Accidental striking against or bumped into by another person, initial encounter; W22.03XA Walked into furniture, initial encounter
CPT/HCPCS: 12011; 90715

== ENCOUNTER 2023-06-12 09:44 | Emergency (ER) | payer MEDICAID ==
[~2023-06-12] VITALS: Ht 170 cm; Wt 65.0 kg
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
[2023-06-12] MEDS ORDERED: NS IV 1000 ML 1,000 ML IV STA (10:35)
[2023-06-12 10:42] LABS: BASOPHILS # (AUTO) 0.1 10^3/uL (0.0-0.1); BASOPHILS % (AUTO) 0 % (0-10); EOSINOPHILS # (AUTO) 0.2 10^3/uL (0.0-0.3); EOSINOPHILS % (AUTO) 2 % (0-10); HEMATOCRIT 43 % (40-54); HEMOGLOBIN 15.5 g/dL (13.3-17.7); LYMPHOCYTES # (AUTO) 1.3 10^3/uL (1.0-4.0); LYMPHOCYTES % (AUTO) 10 % (12-44); MEAN CORPUSCULAR HEMOGLOBIN 33 pg (25-34); MEAN CORPUSCULAR HGB CONC 36 g/dL (32-36); MEAN CORPUSCULAR VOLUME 92 fL (80-99); MEAN PLATELET VOLUME 9.9 fL (9.0-12.2); MONOCYTES # (AUTO) 0.6 10^3/uL (0.0-1.0); MONOCYTES % (AUTO) 5 % (0-12); NEUTROPHILS # (AUTO) 10.2 10^3/uL (1.8-7.8); NEUTROPHILS % (AUTO) 83 % (42-75); PLATELET COUNT 346 10^3/uL (130-400); WHITE BLOOD COUNT 12.4 10^3/uL (4.3-11.0)
[2023-06-12 10:44] LABS: POTASSIUM 3.7 MMOL/L (3.6-5.0)
[2023-06-12 10:45] LABS: CALCIUM 9.5 MG/DL (8.5-10.1)
[2023-06-12] MEDS ORDERED: ONDANSETRON 4 MG/2 ML (SDV) Z0FRAN IVP ONE (10:45)
[2023-06-12] MEDS ORDERED: KETOROLAC INJ 15 MG/ML VIAL IVP ONE (10:45)
[2023-06-12] MEDS ORDERED: GLYCOPYRROLATE INJ 0.2 MG/ML 2 ML VIAL IV ONE (10:45)
[2023-06-12 10:49] LABS: CREATININE SERUM 0.94 MG/DL (0.60-1.30)
[2023-06-12 10:57] LABS: BILIRUBIN,URINE 1+ (NEGATIVE); CLARITY,URINE CLOUDY; COLOR,URINE BROWN; GLUCOSE, URINE (UA) NEGATIVE (NEGATIVE); KETONES,URINE TRACE (NEGATIVE); NITRITE,URINE NEGATIVE (NEGATIVE); PROTEIN,URINE 2+ (NEGATIVE)
[2023-06-12 10:58] LABS: BACTERIA,URINE NEGATIVE /HPF; LEUKOCYTE ESTERASE ,URINE NEGATIVE (NEGATIVE); RBC,URINE TNTC /HPF; SQUAMOUS EPITHELIAL CELL,UR 0-2 /HPF; WBC,URINE 0-2 /HPF
--- NOTE | 2023-06-12 11:29 | Diagnostic Imaging Report ---
PROCEDURE: CT urinary tract, rule out kidney stone. TECHNIQUE: Multiple contiguous axial images were obtained through the abdomen and pelvis without the use of intravenous contrast. Auto Exposure Controls were utilized during the CT exam to meet ALARA standards for radiation dose reduction. INDICATION: Left flank pain for one week. Correlation is made with prior CT from 11/14/2013. FINDINGS: The lung bases are clear. The liver and gallbladder are unremarkable. There is no biliary ductal dilatation. The pancreas and spleen are unremarkable. No adrenal mass is detected. The right kidney contains several small nonobstructing calculi in the lower pole. No ureteral calculi or hydronephrosis on the right side is identified. Several punctate nonobstructing calculi lower pole left kidney are also noted. There is a 2 mm calculus in the proximal left ureter producing moderate hydroureteronephrosis. No other ureteral calculi are seen. No bladder calculi are detected. Aorta is nonaneurysmal. Small and large bowel loops are normal caliber. There is no obstruction. There is no ascites. IMPRESSION: Bilateral nonobstructing nephrolithiasis. In addition, there is a 2 mm proximal left ureteric calculus producing mild hydroureteronephrosis. Dictated by: Dictated on workstation # [id number]
--- NOTE | 2023-06-12 11:55 | Diagnostic Imaging Report ---
REASON FOR EXAM: Left-sided flank pain. COMPARISON: CT performed the same date. TECHNIQUE: frontal supine view of the abdomen FINDINGS: The bowel gas pattern is nondistended. No large collection of free intraperitoneal air is seen. Scattered small amounts of gas and fecal material are present in the colon. The tiny nonobstructing calculi in the kidneys are not well seen on this exam. The calculus in the proximal left ureter is not seen. The osseous structures are age-appropriate. IMPRESSION: 1. No evidence of bowel obstruction or large collection of free intraperitoneal air. 2. The previously described calculi seen on the CT are not visualized on this radiograph. Dictated by: Dictated on workstation # [id number]
[2023-06-12] MEDS ORDERED: TMSL.4C PO (11:57)
[2023-06-12] MEDS ORDERED: KETO10TA PO (11:57)
[2023-06-12] MEDS ORDERED: ONDA4TAB11 PO (11:57)
[2023-06-12] MEDS ORDERED: ACHD5005 PO (11:57)
[2023-06-12 12:20] VITALS: BP 135/79
== END 2023-06-12 12:20 | disposition home or self-care (01) ==
LOC: EDUNIT# 09:44 → ER 09:46
DX: N13.2 Hydronephrosis with renal and ureteral calculous obstruction (principal); F17.210 Nicotine dependence, cigarettes, uncomplicated; Z88.6 Allergy status to analgesic agent; Z28.311 Partially vaccinated for COVID-19
CPT/HCPCS: 36415; 74018; 74176; 80048; 81000; 85025